=== PATIENT | female | born 1995 | race Native Hawaiian/Other Pacific Islander ===

== ENCOUNTER 2017-07-31 08:00 | Outpatient (CLI) | payer OTHER ==
[2017-07-31 19:08] LABS: HGB - HEMOGLOBIN 11.4 g/dL (12.0-16.0); MEAN CORPUSCULAR HEMOGLOBIN 32.1 pg (27.0-31.0); MEAN CORPUSCULAR VOLUME 94.5 fL (81.0-99.0); MEAN PLATELET VOLUME 8.3 fL (7.9-10.8); RED BLOOD COUNT 3.54 10^6/uL (4.20-5.40); RED CELL DISTRIBUTION WIDTH 14.1 % (12.0-15.0); WHITE BLOOD COUNT 8.2 x10^3/uL (4.8-10.8)
== END 2017-07-31 08:01 ==
LOC: LAB.N 08:00
PROVIDERS: ATTEND Nurse Practitioner Obstetrics & Gynecology
DX: Z36.9 Encounter for antenatal screening, unspecified (principal); Z34.82 Encounter for supervision of other normal pregnancy, second trimester
CPT/HCPCS: 36415; 82950; 85025; 86850; 86900; 86901

== ENCOUNTER 2017-08-06 07:56 | Outpatient (CLI) | payer OTHER | END 2017-08-06 07:57 | disposition home or self-care (01) | LOC: LAB 07:56 | PROVIDERS: ATTEND Nurse Practitioner Obstetrics & Gynecology | DX: R73.02 Impaired glucose tolerance (oral) (principal) | CPT/HCPCS: 36415; 82951 ==

== ENCOUNTER 2017-09-29 15:00 | Outpatient (CLI) | payer OTHER | END 2017-09-29 15:01 | disposition home or self-care (01) | LOC: LAB.R 15:00 | PROVIDERS: ATTEND Nurse Practitioner Obstetrics & Gynecology | DX: Z36.85 Encounter for antenatal screening for Streptococcus B (principal); Z11.3 Encounter for screening for infections with a predominantly sexual mode of transmission; R82.99 Other abnormal findings in urine | CPT/HCPCS: 87081; 87086; 87491; 87591 ==

== ENCOUNTER 2017-10-14 12:05 | Outpatient (CLI) | payer OTHER ==
[2017-10-14 13:13] LABS: URIC ACID 3.5 mg/dL (2.6-7.2)
[2017-10-14 13:17] LABS: CREATININE,URINE 55.3 mg/dL; MICROALBUM/CREATININE RATIO,UR 7.2 ug/mg (<30.0); MICROALBUMIN,URINE 0.4 mg/dL (0-300.0)
[2017-10-14 13:25] LABS: BASOPHILS % (AUTO) 0.3 %; EOSINOPHILS # (AUTO) 0.1 10^3/uL (0.0-0.7); EOSINOPHILS % (AUTO) 0.4 %; HGB - HEMOGLOBIN 12.6 g/dL (12.0-16.0); LYMPHOCYTES # (AUTO) 2.1 10^3/uL (1.5-3.5); LYMPHOCYTES % (AUTO) 16.4 %; MEAN CORPUSCULAR HEMOGLOBIN 31.9 pg (27.0-31.0); MEAN CORPUSCULAR HGB CONC 33.9 g/dL (32.0-36.0); MEAN PLATELET VOLUME 8.5 fL (7.9-10.8); MONOCYTES # (AUTO) 0.8 10^3/uL (0.0-1.0); MONOCYTES % (AUTO) 6.7 %; NEUTROPHILS # (AUTO) 9.5 10^3/uL (1.5-6.6); NEUTROPHILS % (AUTO) 76.2 %; PLT - PLATELET COUNT 214 10^3/uL (130-450); RED BLOOD COUNT 3.93 10^6/uL (4.20-5.40); RED CELL DISTRIBUTION WIDTH 13.4 % (12.0-15.0); WHITE BLOOD COUNT 12.5 x10^3/uL (4.8-10.8)
[2017-10-14 14:13] LABS: CREATININE,URINE 55.3 mg/dL; TOTAL PROTEIN,URINE TIMED < 6 mg/dL
[2017-10-14 15:31] VITALS: BP 118/64
== END 2017-10-14 14:50 | disposition home or self-care (01) ==
LOC: FBP 12:05 → WFO 12:05
PROVIDERS: ATTEND Registered Nurse
DX: O13.3 Gestational [pregnancy-induced] hypertension without significant proteinuria, third trimester (principal); Z3A.37 37 weeks gestation of pregnancy
CPT/HCPCS: 36415; 59025; 82043; 82570; 83615; 84156; 84450; 84550; 85025; 99213

== ENCOUNTER 2017-10-20 12:06 | Inpatient (IN) | payer OTHER ==
[2017-10-20] MEDS ORDERED: SODIUM CHLORIDE FLUSH 0.9% 10 ML SYRINGE IVP PRN (12:26)
[2017-10-20] MEDS: miSOPROStol 100 MCG TABLET BC SCH ×2 (13:27→18:31)
[2017-10-20 13:29] LABS: BASOPHILS % (AUTO) 0.2 %; EOSINOPHILS % (AUTO) 0.4 %; HGB - HEMOGLOBIN 13.1 g/dL (12.0-16.0); LYMPHOCYTES % (AUTO) 15.8 %; MEAN CORPUSCULAR HEMOGLOBIN 31.8 pg (27.0-31.0); MEAN CORPUSCULAR HGB CONC 34.6 g/dL (32.0-36.0); MEAN PLATELET VOLUME 8.4 fL (7.9-10.8); NEUTROPHILS % (AUTO) 78.6 %; PLT - PLATELET COUNT 234 10^3/uL (130-450); RED BLOOD COUNT 4.13 10^6/uL (4.20-5.40); RED CELL DISTRIBUTION WIDTH 13.1 % (12.0-15.0); WHITE BLOOD COUNT 12.6 x10^3/uL (4.8-10.8)
[2017-10-20 13:36] LABS: ABNORMAL LYMPHS % (MANUAL) 0 %
[2017-10-20 13:41] LABS: URIC ACID 3.5 mg/dL (2.6-7.2)
[2017-10-20 13:48] LABS: CREATININE,URINE 23.4 mg/dL; TOTAL PROTEIN,URINE TIMED < 6 mg/dL
[2017-10-20 13:55] LABS: BAND NEUTROPHILS % (MANUAL) 1 %; LYMPHOCYTES # (MANUAL) 1.8 10^3/uL (1.5-3.5); LYMPHOCYTES % (MANUAL) 14 %; MONOCYTES # (MANUAL) 0.5 10^3/uL (0.0-1.0); MYELOCYTES % (MANUAL) 1 %; NEUTROPHILS # (MANUAL) 10.2 10^3/uL (1.5-6.6); NEUTROPHILS % (MANUAL) 80 %
[2017-10-20 13:56] LABS: DIFFERENTIAL COMMENT MANUAL DIFFERENTIAL
[2017-10-20] MEDS ORDERED: SODIUM CHLORIDE FLUSH 0.9% 10 ML SYRINGE IVP SCH (17:00)
--- NOTE | 2017-10-20 17:12 | HISTORY & PHYSICAL EXAMINATION ---
Admit History - Instructions [place]/Slash: -Left hand click circles element as positive or present. -Right hand click slashes element as negative or not present. - Visit Reason Visit Reason: Other (preinduction cervical ripening for GHTN) - : 1 Parity: 0 Premature: 0 Ectopic: 0 : 0 Care: positive: [facility] (beginning @ 23 weeks' gestation), [facility] ( transfer of care @ 23 weeks' gestation) Risk/History: positive: None Complications This : positive: induced HTN, Other ( 1st trimester chlamydia w/ neg TIFFANIE & neg re-screen) Smoking Status: Never smoker - Mother's Labs Mother's Blood Type: positive: O Mother's RH: positive: Negative (Rhogam given 08/11/2017) GBS: positive: Group B Step Negative Rubella Status: positive: Immune Review of Systems - Constitutional Constitutional: denies: Fever, Chills - Cardiovascular Cariovascular: reports: Edema. denies: Irregular heart rate, Palpitations, Chest pain - Respiratory Respiratory: denies: Cough, SOB at rest, SOB with exertion - Gastrointestinal Gastrointestinal: denies: Abdominal pain, Constipation, Diarrhea, Change in bowel habits, Nausea, Vomiting - Genitourinary Genitourinary: reports: Frequency, Urgency. denies: Dysuria - Musculoskeletal Musculoskeletal: reports: Back pain. denies: Muscle pain - Integumentary Integumentary: denies: Rash, Pruritis, Lesions - Neurological Neurological: denies: General weakness, Headache, Dizziness, Numbness - Psychiatric Psychiatric: denies: Depression, Anxiety - All Other Systems All Other Systems: reports: Other (occ non-painful uterine contractions, no LOF , no vaginal bleeding, +FM) Physical - Abdominal Exam Vital Signs: Temp Pulse Resp BP Pulse Ox 36.6 C 104 H 18 135/84 H 10/20/17 12:33 10/20/17 15:10 10/20/17 15:10 10/20/17 15:10 Contraction Frequency (min/apart): 1-3 Contraction Intensity: positive: Mild Uterine Resting Tone: positive: Soft - Monitoring Heart Rate Baseline: 140 Strip Review: positive: Category I - Presentation Presentation: positive: Vertex - Vaginal Exam Membranes: positive: Membranes intact Dilation (in cm): 2 Effacement (%): 50 Station: positive: -1 Cervical Position: positive: Midposition (medium) - Speculum Exam Speculum Exam Performed: positive: No Findings: negative: Gross leak - Other Notes Labor Progress Note/Additional Text: Nica Hickey is a 22 y/o @ 38w1d by early US who presented for care in the first trimester & was seen x2 in [place], [place], then transferred to [facility], where she was seen until 23 weeks' gestation, when she transferred care to [facility]. Her was complicated by early 1st trimester chlamydia w/ negative TIFFANIE & negative re-screening later in , Rh negative status w/ receipt of Rhogam 08/11/2017, elevated 1-hr gtt w/ normal 3-hr gtt. She screened negative for GBS @ 36 weeks' gestation. Her was further complicated recently by persistently elevated BPs to max high 140s/high 90s. No proteinuria or s/sx PET @ this time. Nica was counseled regarding gestational HTN & implications for herself & her fetus as well as current recommendations for management. Nica elected induction of labor w/ prostaglandin preinduction cervical ripening. She was counseled @ length by Madeleine Storey CNM, and informed consent was obtained. 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; denies ETOH/tobacco/ drugs; denies hx depression/anxiety PE: GEN: AAOx3, NAD WA gravid female HEENT: grossly normocephalic, atraumatic RESP: lungs b/l CTA t/o CARDIAC: RRR nls1s2, gr 1/6 systolic ejection murmur GI: abd s, nt, gravid, lie longitudinal, presentation cephalic, efw 6.5-7# : no lesion, no exudate, sve by madeleine storey cnm: /-1, medium, midposition MS: FROM t/o, no deformity, no erythema, trace b/l pedal edema, no bea's SKIN: warm, well-perfused, c/d/i, no lesion, + tattoos NEURO: no focal deficit PSYCH: pleasantly conversant w/ normal mood & affect Plan for Labor - Plan For Labor I expect patient to be DC'd or transferred within 96 hours.: Yes Plan for Labor: 1. Admit to observation for preinduction cervical ripening; admit to inpatient w / ROM or active labor 2. misoprostol 50mcg buccally q 4 hours 3. reassess cervical status w/ clinical change 4. Pitocin infusion & AROM w/ favorable cervical stat 5. PET labs now & repeat in am, careful BP monitoring w/ antihypertensive therapy as clinically indicated 6. Reviewed plan of care w/ pt, partner & RN, all in agreement, without concerns
[2017-10-20] MEDS: LACTATED RINGERS 1,000 ML IV SCH (20:53)
[2017-10-21] MEDS: LACTATED RINGERS 1,000 ML IV SCH ×2 (01:52→04:51)
[2017-10-21] MEDS ORDERED: fent/BUPIV 2 MCG/0.125% 250 ML EP ONE (02:23)
[2017-10-21] MEDS ORDERED: NALBUPHINE 10 MG/ML AMP IVP PRN (02:48)
[2017-10-21] MEDS ORDERED: fent/BUPIV 2 MCG/0.125% 250 ML EP PRN (02:48)
[2017-10-21] MEDS ORDERED: ePHEDrine 50 MG/ML VIAL IVP PRN (02:48)
[2017-10-21] MEDS ORDERED: ONDANSETRON 4 MG/2 ML VIAL IVP PRN (02:48)
[2017-10-21] MEDS ORDERED: NALOXONE 0.4 MG/ML VIAL IVP PRN (02:48)
[2017-10-21] MEDS ORDERED: BUPIVACAINE 0.25% PF 30 ML VIAL SUBQ ONE (03:00)
[2017-10-21] MEDS ORDERED: SODIUM CHLORIDE 0.9% 10 ML VIAL IV ONE (03:00)
[2017-10-21] MEDS ORDERED: fentaNYL 100 MCG/2 ML VIAL ONE (03:01)
--- NOTE | 2017-10-21 03:53 | PROVIDER PROGRESS NOTE ---
Labor Progress Note - Uterine Monitoring Uterine Monitoring Mode: positive: External toco Contraction Frequency (min/apart): 2-5 Contraction Intensity: positive: Strong Uterine Resting Tone: positive: Soft Other Uterine Monitoring: IUPC placed without incident; baseline 15mmHg, peak 75mmHg - Monitoring Monitor Mode: positive: Spiral electrode Heart Rate Baseline: 150 Heart Rate Variability: positive: Moderate (6-25 bmp) Accelerations: positive: Present, 15x15 Decelerations: positive: Early, Late (occasional, non-repetitive) Strip Review: positive: Category II - Vaginal Exam Dilation (in cm): 8 Effacement (%): 80 Station: 1 (descends to +2 w/ uterine contraction) - Labor Progress Note Labor Progress Note/Additional Text: S: Nica is comfortable w/ her epidural in place. Ashley is present @ the bedside & is supportive. She feels shaky & has a lot of vaginal pressure w/ each contraction O: VSS: BP 145/91 HR 110, T 97.3, RR 18 EFM: BL 150bpm, + accels, early decels & intermittent late decels to david in 130s w/ spontaneous return to baseline <60 seconds; FSE placed easily to ensure accuracy of FHT assessment TOCO: UCs q1-2 minutes; IUPC placed w/ ease to ensure accuracy of FHT assessment & uterine activity assessment, BL 15mmHg, peak 75mmHg, contractions q1-4 minutes; MVU presently >200 SVE: 8/80/+1; head descends readily to +2 w/ uterine contraction, position LOUIS A: 22 y/o @ 38w1d by early US, active labor s/p 2 buccal doses of 50mcg misoprostol SROM for CAF @2300, for a total ruptured duration of 5 hours, afebrile Progressive cervical change GBS negative FHTs cat II, overall reassuring w/o evidence of hypoxemia Adequate pain control w/ epidural anesthesia P: 1. Reviewed optimal positioning to encourage descent, peanut ball placed & pt in exaggerated R lateral position 2. Encouraged maternal rest to precede second stage 3. Reviewed anticipatory guidance for 2nd stage labor 4. Initiate Pitocin infusion if MVU <200 consistently; titrate per protocol to maintain adequate labor per IUPC 5. Reassess cervical status x4 hours, earlier PRN; plan initial passive descent as fetus tolerates 6. Anticipate 7. Reviewed plan of care w/ pt, partner & RN @ bedside; all in agreement, without concerns. Dr. Chester Do, back-up BREAKER UNIT ASSEMBLER apprised of pt clinical scenario.
[2017-10-21] MEDS ORDERED: OXYTOCIN/SODIUM CHLORIDE 500 ML IV SCH (04:00)
[2017-10-21] MEDS ORDERED: LIDOCAINE 1% 50 ML MDV ONE (07:40)
[2017-10-21] MEDS: OXYTOCIN/SODIUM CHLORIDE 250 ML IV ONE ×2 (07:47→08:23)
[2017-10-21] MEDS ORDERED: HYDROCORTISONE 1% CREAM 28 GM TUBE PR PRN (08:07)
[2017-10-21] MEDS ORDERED: WITCH HAZEL/GLYCERIN 1 EACH MED..PAD TOP PRN (08:07)
[2017-10-21] MEDS ORDERED: HYDROCORTISONE/PRAMOXINE 10 GM PR PRN (08:07)
--- NOTE | 2017-10-21 08:07 | DELIVERY NOTE ---
Delivery Note - Labor Labor: positive: Other (induced w/ misoprostol 50mcg buccally x2 doses) - Infant Delivery Method Delivery Method: positive: Spontaneous vaginal delivery - Cervical Ripening Method Cervical Ripening Method: positive: Misoprostil (x2 buccal doses of 50mcg) - Presentation Presentation: positive: Vertex, Compound (right hand), LOUIS - left occiput anterior - Nuchal Cord Nuchal Cord: positive: None - Anesthetic Anesthetic Type: - Amniotic Fluid Description Amniotic Fluid Description: positive: Clear - Episiotomy Type Episiotomy Type: positive: None - Laceration Laceration: positive: None - Delivery Outcome Delivery Outcome: positive: Livebirth - [place] : positive: Placed in direct skin contact with mother, Warmed, [place] used sex: positive: Female - Cord Cord: positive: 3 vessels - Placenta Placenta: positive: Intact, Spontaneous - Estimated Blood Loss Estimated Blood Loss (in cc): 200 - Delivery Comments (Free Text/Narrative) Delivery Comments (Free Text/Narrative): Nica [place] is a 22y/o [id number] who presented for cervical ripening secondary to gestational HTN w/ increasing BPs @ 38 weeks' gestation. She did not have s/sx PET & did not have severe-range BPs requiring antihypertensive therapy. She received 2 doses of buccal misoprostol & entered active labor. She experienced SROM for CAF @ 00:00 & requested & received epidural anesthesia for her discomfort. FHTs were monitored electronically t/o & were cat I-II; FSE & IUPC were placed to ensure accuracy of assessment & direct interventions. She progressed steadily to complete dilatation @ 0510, for a total first stage duration of 5 hours, 10 minutes. Nica labored down x1.5 hours then began actively pushing w/ greater effort exerted beginning @ 0710 than she was exerting previously. With direction, Nica pushed effectively to achieve viable female in LOUIS position w/ compound R hand @ 0747, for a total 2nd stage duration of 2 hours, 37 minutes. vigorous w/ spontaneous, lusty cry; placed to maternal abd for drying/stim. Delayed cord clamping until cessation of pulsation, then cord clamped x2 by CNM, cut by FOB. 3VC noted, cord blood obtained. 3rd stage actively managed w/ Pitocin in IV fluids. Placenta del spontaneously, Gunjan, @ 0752, for a total 3rd stage duration of 5 minutes. Fundus firm @ U. Vagina & perineum inspected & found to be intact. EBL 200mL. Infant apgars 9/9. Actively attempting to suckle w/in 20 minutes of delivery. Mother & stable; weight pending.
[2017-10-21 08:31] LABS: BASOPHILS % (AUTO) 0.3 %; HGB - HEMOGLOBIN 12.3 g/dL (12.0-16.0); LYMPHOCYTES # (AUTO) 1.4 10^3/uL (1.5-3.5); LYMPHOCYTES % (AUTO) 8.3 %; MEAN CORPUSCULAR HEMOGLOBIN 31.6 pg (27.0-31.0); MEAN CORPUSCULAR HGB CONC 34.1 g/dL (32.0-36.0); MEAN CORPUSCULAR VOLUME 92.7 fL (81.0-99.0); MEAN PLATELET VOLUME 8.6 fL (7.9-10.8); MONOCYTES % (AUTO) 5.7 %; NEUTROPHILS # (AUTO) 14.7 10^3/uL (1.5-6.6); NEUTROPHILS % (AUTO) 85.7 %; PLT - PLATELET COUNT 212 10^3/uL (130-450); RED BLOOD COUNT 3.89 10^6/uL (4.20-5.40); RED CELL DISTRIBUTION WIDTH 13.3 % (12.0-15.0); WHITE BLOOD COUNT 17.2 x10^3/uL (4.8-10.8)
[2017-10-21 08:42] LABS: CREATININE 0.5 mg/dL (0.4-1.0); URIC ACID 4.8 mg/dL (2.6-7.2)
[2017-10-21] MEDS: IBUPROFEN 800 MG TABLET PO SCH ×3 (09:07→21:16)
[2017-10-21] MEDS: ACETAMINOPHEN 500 MG TABLET PO SCH ×2 (09:07→16:56)
--- NOTE | 2017-10-21 11:45 | ANESTHESIA POST OP EVALUATION ---
Anesthesia Post Eval - Post Anesthesia Eval CV Function Including HR & BP: positive: Stable Pain Control: positive: Adequate Nausea & Vomiting: positive: Negative Mental Status: positive: Appropriate Anesthesia Complications: positive: None (Call to 2103 for difficulty removing epidural catheter. Pt sitting with back bent in epidural placement position. Catheter removed with tip intact with moderate resistance. Pt states she was comfortable with epidural. No apparent anesthesia complications. Explained that back may be sore at placement site in coming days.)
[2017-10-22] MEDS: ACETAMINOPHEN 500 MG TABLET PO SCH ×2 (00:56→09:00)
[2017-10-22] MEDS: IBUPROFEN 800 MG TABLET PO SCH ×3 (04:18→12:21)
--- NOTE | 2017-10-22 09:07 | Discharge Plan ---
Discharge Plan Disposition: 01 Home, Self Care Condition: Good Diet: Regular Activity Restrictions: pelvic rest x6 weeks Shower Restrictions: No Driving Restrictions: No Weight Bearing: Full Weight Instruction Topics: Vaginal After, Breastfeed How To, Jaundice Signs Inf , Exercises Kegel No Smoking: If you smoke, Please STOP! Call for help. Follow-up with: Walker Fam CNM, PURA [Provider Admit Priv/Credential] -
--- NOTE | 2017-10-22 09:10 | DISCHARGE SUMMARY ---
"Discharge Summary Admit Date: 10/20/17 Discharge Date: 10/22/17 Discharging Provider: ROMA Code Status: Attempt Resuscitation Condition at Discharge: Good Discharge Disposition: 01 Home, Self Care Discharge Facility Name: [facility] - DIAGNOSES Admission Diagnoses: GESTATIONAL HYPERTENSION Discharge Diagnoses with Status of Each Condition: - HPI History of Present Illness: ALTHEA HOLCOMB IS A 22 Y/O [id number] WHO PRESENTED FOR PREINDUCTION CERVICAL RIPENING FOR NEW ONSET HTN W/O SEVERE RANGE BPS @ 38 WEEKS' GESTATION BY FIRST TRIMESTER US. SHE RECEIVED 2 BUCCAL DOSES OF PO MISOPROSTOL & PROGRESSED TO ACTIVE LABOR FROM THERE. SHE EXPERIENCED SROM FOR CAF & RECEIVED EPIDURAL ANESTHESIA FOR PAIN MANAGEMENT. SHE PROGRESSED STEADILY TO COMPLETE DILATATION & DELIVERED A VIABLE FEMALE VAGINALLY OVER AN INTACT PERINEUM W/O COMPLICATION. - CONSULTS | PROCEDURES Consultations: ANESTHESIA Procedures: , ALTHEA IS AMBULATING & VOIDING W/O DIFFICULTY. SHE IS PASSING FLATUS & TOLERATING PO INTAKE. SHE REPORTS NO DISCOMFORT & MINIMAL LOCHIA RUBRA. SHE IS EXCLUSIVELY W/O DIFFICULTY & REPORTS COPIOUS COLOSTRUM PRODUCTION. SHE IS PLANNING 84 DAYS OF LEAVE FROM WORK & HER WILL HAVE 10 DAYS OFF TO ASSIST HER AT HOME. HER FAMILY & HIS FAMILY WILL BE VISITING IN [place]AG[place]ED [place] TO ASSIST HER. SHE IS NOT PLANNING ANOTHER @ THIS TIME & INTENDS PP NEXPLANON INSERTION FOR CONTRACEPTION. SHE IS ABLE TO FULLY ARTICULATE PP WARNING S/SX, INCLUDING PP DEPRESSION S/SX, AND PP AFTERCARE INSTRUCTIONS. SHE IS READY TO LEAVE THE HOSPITAL. - HOSPITAL COURSE Hospital Course: , ALTHEA IS AMBULATING & VOIDING W/O DIFFICULTY. SHE IS PASSING FLATUS & TOLERATING PO INTAKE. SHE REPORTS NO DISCOMFORT & MINIMAL LOCHIA RUBRA. SHE IS EXCLUSIVELY W/O DIFFICULTY & REPORTS COPIOUS COLOSTRUM PRODUCTION. SHE IS PLANNING 84 DAYS OF LEAVE FROM WORK & HER WILL HAVE 10 DAYS OFF TO ASSIST HER AT HOME. HER FAMILY & HIS FAMILY WILL BE VISITING IN STAGGERED [place] TO ASSIST HER. SHE IS NOT PLANNING ANOTHER @ THIS TIME & INTENDS PP NEXPLANON INSERTION FOR CONTRACEPTION. SHE IS ABLE TO FULLY ARTICULATE PP WARNING S/SX, INCLUDING PP DEPRESSION S/SX, AND PP AFTERCARE INSTRUCTIONS. SHE IS READY TO LEAVE THE HOSPITAL. - ALLERGIES Allergies/Adverse Reactions: Allergies Allergy/AdvReac Type Severity Reaction Status Date / Time No Known Drug Allergies Allergy Verified 10/21/17 02:48 - MEDICATIONS Home Medications: Ambulatory Orders Medication Instructions Recorded Confirmed Ibuprofen [Motrin] 800 mg PO Q6H tablet 10/22/17 - PHYSICAL EXAM AT DISCHARGE General Appearance: positive: No acute distress, Alert Respiratory: positive: Chest non-tender, No respiratory distress, Breath sounds nml Cardiovascular: positive: Regular rate & rhythm, No murmur Abdomen: positive: Non-tender, No distention, Other (ff U-1). negative: Tenderness Skin: positive: Color nml, No rash, Warm, Dry Extremities: positive: Non-tender, Full ROM, Nml appearance, No pedal edema. negative: Calf tenderness, Araceli's sign/cords Neurologic/Psychiatric: positive: Oriented x3, CN's nml (2-12), Motor nml, Sensation nml, Mood/affect nml Physical Exam Other/Comments: BREASTS B/L S, NT; NIPPLES B/L INTACT & EVERTED; COLOSTRUM READILY EXPRESSIBLE. PERINEUM INTACT W/O ERYTHEMA/EDEMA/ECCHYMOSIS, MINIMAL LOCHIA RUBRA - LABS Result Diagrams: 10/21/17 08:23 10/21/17 08:23 - FOLLOW UP Follow Up: X1 WEEK FOR W/ LIA BRANDON CNM; X3 WEEKS FOR PP VISIT; X8 WEEKS FOR ANNUAL EXAM - TIME SPENT Time Spent in Discharge (Minutes): 20"
[2017-10-22] MEDS ORDERED: DOCUSATE SODIUM 100 MG CAPSULE PO SCH (10:00)
[2017-10-22 12:25] VITALS: BP 126/78
[2017-10-22] MEDS ORDERED: RHO(D) IMMUNE GLOBULIN 300 MCG SYRINGE IM SCH (14:08)
--- NOTE | 2017-10-22 16:19 | Labor Flowsheet ---
Labor Flowsheet Datetime Report Generated by CPN: 10/22/2017 16:19 Datetime: 10/22/2017 12:17 VITAL SIGNS NBP Sys/Callie/Mean (mmHg): 126 : 78 : 88 Pulse: 77 LaborFlag: Labor Datetime: 10/21/2017 23:59 SpO2 (%): 99 Datetime: 10/21/2017 07:45 Stage of : Labor UTERINE ACTIVITY Monitor Mode: Internal Frequency (min): 3 Duration (sec): 60-80 Pattern: Normal: <= 5 Contractions in 10 Minutes Resting Tone IUP (mmHg): 30 Intensity IUP (mmHg): 100 Contraction Comments: ctx ASSESSMENT A Monitor Mode: Internal Scalp Electrode FHR Baseline Rate : indeterminate Variability: Moderate 6-25 bpm Actions for Decelerations: Provider Notified Category: Category II Datetime: 10/21/2017 07:30 Temperature (C): 36.7 Accelerations: None Decelerations: Variable Datetime: 10/21/2017 07:20 COMMUNICATION Communication: Provider at Bedside Communication Comments: Mil[place]a Datetime: 10/21/2017 07:15 Resting Tone (Palpate): Relaxed Datetime: 10/21/2017 07:02 Quality: Strong Datetime: 10/21/2017 06:59 Respirations: 18 Datetime: 10/21/2017 06:50 Temperature Route: Oral FHR Baseline Changes: No Baseline Change Datetime: 10/20/2017 19:00 Oxygen Method: Room Air Datetime: 10/20/2017 18:31 MEDICATIONS Cervical Ripening Agents: Cytotec @ 50 Datetime: 10/20/2017 13:01 MATERNAL ASSESSMENT Level of Consciousness: Fully Conscious DTR's/Clonus: DTRs 2+; No Clonus Headache: Frontal Breath Sounds, Left: Clear and Equal Breath Sounds, Right: Clear and Equal Nausea/Vomiting: Denies RUQ Epigastric Pain: Denies Maternal Comments: Had upper abdominal pain this morning, resolved now PATIENT CARE IV/Blood Work: IV Started TEACHING Instructional Method: Verbal Plan of Care: Plan of Care Discussed; Induction Unit Routine: Webster to Room; Call Garcia; Bed Labor/Induction: Cervical Ripening
== END 2017-10-22 15:15 | disposition home or self-care (01) | DRG 774 ==
LOC: WFO 12:06 → FBP 12:08 → WFO 12:25 → FBP 12:26 → OBSVTOIN 23:03
PROVIDERS: ADMIT Nurse Practitioner Obstetrics & Gynecology; ATTEND Registered Nurse
PROC: 10E0XZZ Delivery of Products of Conception, External Approach (ICD-10-PCS; principal; 2017-10-21)
DX: O13.4 Gestational [pregnancy-induced] hypertension without significant proteinuria, complicating childbirth (principal); O98.32 Other infections with a predominantly sexual mode of transmission complicating childbirth; O26.893 Other specified pregnancy related conditions, third trimester; O32.6XX0 Maternal care for compound presentation, not applicable or unspecified; Z3A.38 38 weeks gestation of pregnancy; Z37.0 Single live birth; Z67.41 Type O blood, Rh negative
CPT/HCPCS: 36415; 82565; 82570; 83033; 83615; 84156; 84450; 84550; 85025; 86900; 86901; 96360; 96361

== ENCOUNTER 2018-06-15 14:14 | Emergency (ER) | payer OTHER ==
[2018-06-15 14:43] LABS: BILIRUBIN,URINE NEGATIVE (NEGATIVE); GLUCOSE, URINE (UA) NEGATIVE (NEGATIVE); KETONES,URINE (UA) NEGATIVE (NEGATIVE); LEUKOCYTE ESTERASE, URINE NEGATIVE (NEGATIVE); NITRITE,URINE NEGATIVE (NEGATIVE); OCCULT BLOOD,URINE MODERATE (NEGATIVE); PH,URINE 6.5 PH (5.0-7.5); PROTEIN,URINE NEGATIVE (NEGATIVE); UROBILINOGEN,URINE 0.2 (NORMAL) E.U./dL (NORMAL)
[2018-06-15 14:46] LABS: CLARITY,URINE CLEAR (CLEAR); HCG UR QUAL NEGATIVE
--- NOTE | 2018-06-15 15:01 | ED Physician Documentation ---
PD HPI FEMALE - Stated complaint Stated Complaint: FEMALE /ABD PX/NAUSA/DIZZY - Chief complaint Chief Complaint: Abd Pain - History obtained from History obtained from: Patient - History of Present Illness Timing - onset: How many days ago (has had Nexplanon for several months and has had ongoing frequent spotting and cramps with it. No full menses per se. Has had few days of increased cramping pains now. No vaginal discharge per se with the spotting. Current pains are worse than prior.) Timing - duration: Days Timing - details: Gradual onset, Still present, Waxing and waning Associated symptoms: Pelvic pain, Vaginal bleeding. No: Fever, Vaginal discharge, Genital sore/lesion, Dysuria, Urinary frequency Contributing factors: control. No: , Exposed to STD Similar symptoms before: No diagnosis (has had significant cramping at times since Nexplanon past several months) Review of Systems Constitutional: denies: Fever, Chills, Myalgias Nose: denies: Rhinorrhea / runny nose, Congestion Throat: denies: Sore throat Respiratory: denies: Cough GI: reports: Abdominal Pain, Nausea. denies: Vomiting, Diarrhea : reports: Irregular menses (just spotting without full menses). denies: Dysuria, Frequency, Discharge Skin: denies: Rash, Lesions PD PAST MEDICAL HISTORY - Past Medical History Cardiovascular: None Respiratory: None Neuro: None Endocrine/Autoimmune: None - Present Medications Home Medications: Ambulatory Orders Medication Instructions Recorded Confirmed Ibuprofen [Motrin] 800 mg PO Q6H tablet 10/22/17 06/15/18 - Allergies Allergies/Adverse Reactions: Allergies Allergy/AdvReac Type Severity Reaction Status Date / Time No Known Drug Allergies Allergy Verified 06/15/18 15:04 - Social History Smoking Status: Never smoker PD ED PE NORMAL - Vitals Vital signs reviewed: Yes - General General: Alert and oriented X 3, Well developed/nourished, Other (appears uncomfortable but declines meds, says she does not like to take medication. Wanting to ensure no significant problems. ) - HEENT HEENT: Pharynx benign - Neck Neck: Supple, no meningeal sign, No adenopathy - Cardiac Cardiac: RRR, No murmur - Respiratory Respiratory: Clear bilaterally - Abdomen Abdomen: Normal bowel sounds, Soft, Non distended, No organomegaly, Other (suprapubic and LLQ tenderness without guarding nor percussion tenderness. ) - Female Female : Deferred - Derm Derm: Normal color, Warm and dry - Extremities Extremities: No tenderness to palpate, Normal ROM s pain - Neuro Neuro: Alert and oriented X 3, No motor deficit, Normal speech Results - Vitals Vitals: Vital Signs - 24 hr 06/15/18 06/15/18 06/15/18 14:20 16:01 17:20 Temperature 36.1 C L 36.5 C Heart Rate 86 96 86 Respiratory 16 18 16 Rate Blood Pressure 139/83 H 121/77 117/88 H O2 Saturation 98 98 98 Oxygen O2 Source Room air - Labs Labs: Laboratory Tests 06/15/18 06/15/18 14:30 14:30 Urine Color YELLOW Urine Clarity CLEAR Urine pH 6.5 Ur Specific [place] 1.020 1.020 Urine Protein NEGATIVE Urine Glucose (UA) NEGATIVE Urine Ketones NEGATIVE Urine Occult Blood MODERATE H Urine Nitrite NEGATIVE Urine Bilirubin NEGATIVE Urine Urobilinogen 0.2 (NORMAL) Ur Leukocyte Esterase NEGATIVE Urine RBC 6-10 H Urine WBC 0-3 Ur Squamous Epith Cells FEW Squamous Urine Bacteria Rare Ur Microscopic Review INDICATED Urine Culture Comments NOT INDICATED Urine HCG, Qual NEGATIVE - Rads (name of study) pelvic U/S Radiology: Prelim report reviewed (small cyst/dominant follicle left ovary without signs of free fluid. Good blood flow seem in ovaries. ) PD MEDICAL DECISION MAKING - ED course Complexity details: reviewed results, considered differential, d/w patient Departure - Departure Disposition: 01 Home, Self Care Clinical Impression: Pelvic pain Condition: Stable Record reviewed to determine appropriate education?: Yes Instructions: ED Cramping Menstrual Follow-Up: AMAIRANI MORENO MD [Primary Care Provider] - Comments: Drink lots of fluids. You have a small simple cyst on your ultrasound. Is not that big so I do not know that that is necessarily hurting but might be incidental. There is no signs of internal bleeding. Otherwise the ultrasound looks normal. Drink lots of fluids and use ibuprofen or naproxen if needed for pains or cramps. Follow-up if repetitive episodes of this. If you have vaginal discharge or symptoms of infection then also follow-up or return. Discharge Date/Time: 06/15/18 17:26
[2018-06-15 15:14] LABS: BACTERIA,URINE Rare /HPF (None Seen); SQUAMOUS EPITHELIAL CELL,UR FEW Squamous (<= Few)
[2018-06-15 17:20] VITALS: BP 117/88
--- NOTE | 2018-06-15 17:38 | Ultrasound Report ---
Reason: pelvic pain, mostly to left, for 2-3 days Procedure Date: 06/15/2018 Accession Number: [id number] / [id number] Procedure: US - Pelvic w/Transvag+Doppler Ltd CPT Code: FULL RESULT: EXAM: PELVIC WITH TRANSVAGINAL PLUS DOPPLER EXAM DATE: 06/15/2018 04:45 PM. CLINICAL HISTORY: Pelvic pain, mostly to left, for 2-3 days. COMPARISON: None. TECHNIQUE: Realtime transabdominal pelvic scan performed to identify the uterus and adnexa and as an overview of other pelvic structures, followed by transvaginal scan to provide greater detail of the uterus and adnexa, with static image documentation. FINDINGS: Uterus: 6.7 x 3 x 5.3 cm, volume 56 cc. Anteverted position. Normal overall size and echotexture. Masses: None. Endometrium: 2 mm. Normal. Cervix: Unremarkable. Right Ovary: 3.5 x 2.3 x 3.1 cm, volume 31.1 cc. Normal echotexture and blood flow. Arterial and venous blood flow are present. Peak systolic velocity 21.63 cm/s, resistive index 0.5. Left Ovary: 2.9 x 2.3 x 2 cm, volume 6.9 cc. Normal echotexture and blood flow. Dominant follicle in the left ovary measures 1.6 x 1 x 1.2 cm. Arterial and venous blood flow are present. Peak systolic velocity 6.52 cm/s, resistive index 0.41. Free Fluid: No significant free fluid seen. IMPRESSION: Normal pelvic ultrasound. Arterial and venous blood flow are present in both ovaries. No evidence for ovarian torsion. RADIA
== END 2018-06-15 17:26 | disposition home or self-care (01) ==
LOC: ED 14:14
DX: R10.2 Pelvic and perineal pain (principal); N83.02 Follicular cyst of left ovary
CPT/HCPCS: 76830; 76856; 81001; 81003; 81025; 87086; 93976; 99283

== ENCOUNTER 2019-07-16 08:00 | Emergency (ER) | payer OTHER ==
[2019-07-16 09:11] LABS: BILIRUBIN,URINE NEGATIVE (NEGATIVE); GLUCOSE, URINE (UA) NEGATIVE (NEGATIVE); KETONES,URINE (UA) TRACE mg/dL (NEGATIVE); LEUKOCYTE ESTERASE, URINE NEGATIVE (NEGATIVE); NITRITE,URINE NEGATIVE (NEGATIVE); OCCULT BLOOD,URINE NEGATIVE (NEGATIVE); PH,URINE 6.5 PH (5.0-7.5); PROTEIN,URINE NEGATIVE (NEGATIVE); UROBILINOGEN,URINE 0.2 (NORMAL) E.U./dL (NORMAL)
[2019-07-16 09:15] LABS: CLARITY,URINE CLEAR (CLEAR); HCG UR QUAL POSITIVE
--- NOTE | 2019-07-16 09:18 | ED Physician Documentation ---
PD HPI FEMALE - Stated complaint Stated Complaint: FEMALE - Chief complaint Chief Complaint: General - History obtained from History obtained from: Patient - History of Present Illness Timing - onset: How many days ago (she is 4-5 days late for her period, which is usually very regular, so took home test that was positive. She is concerned since she has an IUD in place.) Timing - duration: Days (discovered today) Associated symptoms: No: Fever, Pelvic pain, Vaginal bleeding, Vaginal discharge, Dysuria, Urinary frequency Contributing factors: (just discovered with test at home.), IUD (has had it in for 5-6 months) OB-COLLAR POINTER History: G (2), P (1) Recently seen: Not recently seen Review of Systems Constitutional: denies: Fever, Chills Nose: denies: Rhinorrhea / runny nose, Congestion Throat: denies: Sore throat Respiratory: denies: Cough GI: reports: Nausea. denies: Abdominal Pain, Vomiting, Diarrhea : reports: LMP (5 weeks ago), Vaginal bleeding, Missed period. denies: Dysuria, Frequency Neurologic: denies: Generalized weakness, Near syncope PD PAST MEDICAL HISTORY - Past Medical History Cardiovascular: None Respiratory: None Neuro: None Endocrine/Autoimmune: None GI: None COLLAR POINTER: None : None HEENT: None Psych: None Musculoskeletal: None Derm: None - Past Surgical History Past Surgical History: No - Present Medications Home Medications: Ambulatory Orders Medication Instructions Recorded Confirmed Ibuprofen [Motrin] 800 mg PO Q6H tablet 10/22/17 06/15/18 - Allergies Allergies/Adverse Reactions: Allergies Allergy/AdvReac Type Severity Reaction Status Date / Time No Known Drug Allergies Allergy Verified 06/15/18 15:04 - Social History Does the pt smoke?: No Smoking Status: Never smoker Does the pt drink ETOH?: No Does the pt have substance abuse?: No PD ED PE NORMAL - Vitals Vital signs reviewed: Yes - General General: Alert and oriented X 3, No acute distress, Well developed/nourished - Cardiac Cardiac: RRR, No murmur - Respiratory Respiratory: Clear bilaterally - Abdomen Abdomen: Normal bowel sounds, Soft, Non tender, Non distended - Female Female : Deferred - Back Back: No CVA TTP - Derm Derm: Normal color Results - Vitals Vitals: Vital Signs - 24 hr 07/16/19 07/16/19 08:30 12:30 Temperature 36.9 C 36.5 C Heart Rate 79 78 Respiratory 18 16 Rate Blood Pressure 122/62 117/68 O2 Saturation 100 100 Oxygen O2 Source Room air - Labs Labs: Laboratory Tests 07/16/19 07/16/19 07/16/19 08:37 08:37 09:47 WBC 6.4 RBC 4.80 Hgb 11.4 L Hct 37.3 MCV 77.7 L MCH 23.8 L MCHC 30.6 L RDW 16.4 H Plt Count 253 MPV 9.3 Neut # (Auto) 3.4 Lymph # (Auto) 2.4 [place] # (Auto) 0.5 Eos # (Auto) 0.0 Baso # (Auto) 0.0 Absolute Nucleated RBC 0.00 Nucleated RBC % 0.0 HCG, Quant Urine Color YELLOW Urine Clarity CLEAR Urine pH 6.5 Ur Specific [place] 1.020 1.020 Urine Protein NEGATIVE Urine Glucose (UA) NEGATIVE Urine Ketones TRACE Urine Occult Blood NEGATIVE Urine Nitrite NEGATIVE Urine Bilirubin NEGATIVE Urine Urobilinogen 0.2 (NORMAL) Ur Leukocyte Esterase NEGATIVE Ur Microscopic Review NOT INDICATED Urine Culture Comments NOT INDICATED Urine HCG, Qual POSITIVE Blood Type 07/16/19 07/16/19 09:47 09:47 WBC RBC Hgb Hct MCV MCH MCHC RDW Plt Count MPV Neut # (Auto) Lymph # (Auto) [place] # (Auto) Eos # (Auto) Baso # (Auto) Absolute Nucleated RBC Nucleated RBC % HCG, Quant 145.96 Urine Color Urine Clarity Urine pH Ur Specific [place] Urine Protein Urine Glucose (UA) Urine Ketones Urine Occult Blood Urine Nitrite Urine Bilirubin Urine Urobilinogen Ur Leukocyte Esterase Ur Microscopic Review Urine Culture Comments Urine HCG, Qual Blood Type O NEGATIVE - Rads (name of study) OB U/S Radiology: Prelim report reviewed (IUD in MARCI (upper cervix). No IUP seen. Corpus luteum cyst on left. No other adnexal abnormality. ), See rad report PD MEDICAL DECISION MAKING - ED course Complexity details: reviewed results, re-evaluated patient, considered differential (concern for IUD with early , high risk for ectopic. ), d/w patient, d/w organizational effectiveness consultant (Dr. Villeda, lead generation specialist COLLAR POINTER) Departure - Departure Disposition: 01 Home, Self Care Clinical Impression: Early stage of , IUD (intrauterine device) in place Condition: Stable Record reviewed to determine appropriate education?: Yes Instructions: ED Abdominal Pain Rule Out Ectopic Follow-Up: JAMES VILLEDA MD, PHD [Physician No Access] - AMAIRANI MORENO MD [Primary Care Provider] - Comments: Stay well-hydrated. Follow-up with your primary care or [facility] for repeat blood tests (quantitative hCG) every 3 days or so until the level is high enough to repeat an ultrasound and look for the viability of the and position. Return if abdominal pain, fevers, vomiting, significant vaginal bleeding, other concerns. Tylenol or ibuprofen are okay to take for pains if needed Forms: Activity restrictions Discharge Date/Time: 07/16/19 12:32
[2019-07-16 09:56] LABS: BASOPHILS % (AUTO) 0.5 %; EOSINOPHILS % (AUTO) 0.2 %; HGB - HEMOGLOBIN 11.4 g/dL (12.0-16.0); LYMPHOCYTES # (AUTO) 2.4 10^3/uL (1.5-3.5); MEAN CORPUSCULAR HEMOGLOBIN 23.8 pg (27.0-31.0); MEAN CORPUSCULAR HGB CONC 30.6 g/dL (32.0-36.0); MEAN CORPUSCULAR VOLUME 77.7 fL (81.0-99.0); MEAN PLATELET VOLUME 9.3 fL (7.9-10.8); MONOCYTES # (AUTO) 0.5 10^3/uL (0.0-1.0); MONOCYTES % (AUTO) 8.2 %; NEUTROPHILS # (AUTO) 3.4 10^3/uL (1.5-6.6); NEUTROPHILS % (AUTO) 53.9 %; PLT - PLATELET COUNT 253 10^3/uL (130-450); RED CELL DISTRIBUTION WIDTH 16.4 % (12.0-15.0); WHITE BLOOD COUNT 6.4 x10^3/uL (4.8-10.8)
--- NOTE | 2019-07-16 11:03 | Ultrasound Report ---
Reason: early ; IUD; lower abd pain Procedure Date: 07/16/2019 Accession Number: [id number] / [id number] Procedure: US - OB First Trimester CPT Code: Final Report FULL RESULT: EXAM: FIRST TRIMESTER OBSTETRIC ULTRASOUND (Less than 11 weeks) EXAM DATE: 07/16/2019 09:59 AM. CLINICAL HISTORY: Early ; IUD; lower abd pain. LMP: 06/13/2019. COMPARISONS: None. TECHNIQUE: Transabdominal and transvaginal ultrasound examination with static image documentation. CLINICAL DATES: EGA 4 weeks 5 days with MEL 03/19/2020 based on LMP/. ASSESSMENT: Gestational Sac: Not identified Embryo: Not identified. Yolk sac: Not identified MATERNAL STRUCTURES: Uterus: Anteverted/Retroverted. Endometrium thickened 14 mm. . Cervix: IUD in cervix, lower uterine segment. Right Ovary/Adnexa: The ovary measures 3.5 x 1.6 x 2 cm, volume 5.8 cc. Unremarkable. Left Ovary/Adnexa: The ovary measures 3.9 x 2.5 x 2.9 cm, volume 14.7 cc. Collapsing corpus luteal cyst 1.8 x 1.6 x 1.4 cm Free Fluid: None. Other: None. IMPRESSION: 1. No intrauterine identified. 2. Left ovary corpus luteal cyst. Ovaries otherwise unremarkable RADIA
[2019-07-16 12:32] VITALS: BP 117/68
--- NOTE | 2019-07-18 13:53 | CONSULTATION NOTE ---
Referring Provider Name of Referring Provider:: Peter Consult Date: 07/16/19 Chief Complaint - Chief Complaint Chief Complaint: with IUD in place History of Present Illness - History Obtained From Records Reviewed: prior prenatals History obtained from: patient - History of Present Illness HPI Comment/Other: Patient is a 24 yo with positive test with IUD in place. IUD in place for a few months. Placed at [facility]; unremarkable placement experience per patient. No VB, abdominal pain, N/V. Menses 4-5 days late and positive UPT. unplanned but desired. PMH: gestational HTN PSH: tonsillectomy OBHX: with x1 CT in prior . Abnormal glucola, nl 3H OGTT Uncomplicated delivery. IUD placed 4-5 months ago. 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 Exam - Physical Exam General Appearance: positive: No acute distress Respiratory: positive: No respiratory distress, Breath sounds nml Cardiovascular: positive: Regular rate & rhythm Peripheral Pulses: positive: 1+ Abdomen: positive: Non-tender, No distention Skin: positive: Color nml Extremities: positive: Non-tender Neurologic/Psychiatric: positive: Oriented x3 Comments/Other: PELVIC: NEFG, NL BSUMA, Speculum inserted; vaginal mucosa pink and moist, rugated. Parous cervix with IUD strings visible. IUD removed as per procedure note. Shaft of IUD at external os. No VB or discharge. Conclusion/Plan - Lab Results Fish Bones: 02/28/20 09:47 - Other Other Results/Comments: OF UNKNOWN LOCATION WITH IUD IN PLACE. Patient voiced desire for despite failure of IUD. Reviewed high risk of ectopic given retained IUD. Desires removal of IUD. PROCEDURE: Risks/benefits/alternatives to procedure were reviewed. Emphasized that risk to intrauterine include induced SAB. However, continuing a viable IUP with Paraguard in place would continue to threaten . Informed consent was obtained. Patient was placed in dorsal lithotomy position and speculum was placed. Cervix was visualized. Strings were seen. Strings were grasped with a ring forceps and IUD was removed without resistance. It was examined and found to be intact. No bleeding was noted. All instruments were removed from the vagina. Procedure was well tolerated and without complications. FOLLOW-UP: Reviewed that with IUD in place is a significant risk factor for ectopic . is too early to be seen on pelvic us. Recommend trending HCG levels every 3 days until threshold for us visualization is reached. Reviewed expectation that HCG should [nearly] double every 3 days in a normal intrauterine . With a decline in levels, SAB is suspected. With inappropriate rise, ectopic is expected. Reviewed warning signs for ectopic . Reviewed that ectopic can be a life threatening event and consistent follow-up is imperative. HCG levels were ordered for patient through [facility]. She and balance bridge inspector voiced clear understanding. Will FU HCG in 3 days More than 30 minutes was spent with patient, in addition to procedure, in face to face career guidance counselor.
== END 2019-07-16 12:32 | disposition home or self-care (01) ==
LOC: ED 08:00
DX: Z32.01 Encounter for pregnancy test, result positive (principal); O26.31 Retained intrauterine contraceptive device in pregnancy, first trimester; O34.81 Maternal care for other abnormalities of pelvic organs, first trimester; N83.12 Corpus luteum cyst of left ovary
CPT/HCPCS: 36415; 58301; 76801; 76817; 81001; 81003; 81025; 84702; 85025; 86900; 86901; 87086; 99284

== ENCOUNTER 2019-07-22 09:46 | Outpatient (CLI) | payer OTHER | END 2019-07-22 09:47 | disposition home or self-care (01) | LOC: LAB 09:46 | PROVIDERS: ATTEND Obstetrics & Gynecology | DX: O26.31 Retained intrauterine contraceptive device in pregnancy, first trimester (principal); Z32.01 Encounter for pregnancy test, result positive; Z3A.00 Weeks of gestation of pregnancy not specified | CPT/HCPCS: 36415; 84702 ==

== ENCOUNTER 2019-07-26 09:29 | Outpatient (CLI) | payer OTHER | END 2019-07-26 09:30 | disposition home or self-care (01) | LOC: LAB 09:29 | PROVIDERS: ATTEND Obstetrics & Gynecology | DX: Z32.01 Encounter for pregnancy test, result positive (principal); O26.31 Retained intrauterine contraceptive device in pregnancy, first trimester; Z3A.00 Weeks of gestation of pregnancy not specified | CPT/HCPCS: 36415; 84702 ==

== ENCOUNTER 2019-07-29 18:54 | Outpatient (CLI) | payer OTHER ==
--- NOTE | 2019-07-30 05:34 | Ultrasound Report ---
Reason: POSITIVE TEST Procedure Date: 07/29/2019 Accession Number: [id number] / [id number] Procedure: US - OB First Trimester CPT Code: Final Report FULL RESULT: EXAM: FIRST TRIMESTER OBSTETRIC ULTRASOUND (Less than 11 weeks) EXAM DATE: 07/29/2019 07:51 PM. CLINICAL HISTORY: POSITIVE TEST. LMP: 06/13/2019. COMPARISONS: OB FIRST TRIMESTER 07/16/2019 9:59 AM. TECHNIQUE: Transabdominal and transvaginal ultrasound examination with static image documentation. CLINICAL DATES: EGA 6 weeks 4 days with MEL 03/19/2020 based on LMP. ASSESSMENT: Gestational Sac: Single intrauterine. Mean gestational sac diameter: 12 mm = 6 weeks 0 days. Embryo: Not seen at this early gestational age Cardiac activity: Not seen at this early gestational age Yolk sac: 3 mm. Amniotic fluid: Not accurately assessed at this gestational age. Early placenta: Not visible at this gestational age. Other: No perigestational fluid collection demonstrated. MATERNAL STRUCTURES: Uterus: Anteverted. Unremarkable. Cervix: Closed. Right Ovary/Adnexa: The ovary measures 2.8 x 1.9 x 2.0 cm, volume 5.6 cc. Unremarkable. Left Ovary/Adnexa: The ovary measures 3.8 x 2.8 x 2.2 cm, volume 11.9 cc. Corpus luteum measuring 1.8 x 2.5 x 2.0 cm Free Fluid: None. Other: None. IMPRESSION: Intrauterine with gestational sac and yolk sac, without pole seen at this early gestational age with an ultrasound age of 5 weeks 5 days and ultrasound estimated date of delivery of 03/25/2020. Short follow-up can be obtained to assess for pole and viability RADIA
== END 2019-07-29 18:55 | disposition home or self-care (01) ==
LOC: DI 18:54
PROVIDERS: ATTEND Obstetrics & Gynecology
DX: Z32.01 Encounter for pregnancy test, result positive (principal)
CPT/HCPCS: 76801; 76817

== ENCOUNTER 2019-08-13 08:16 | Outpatient (CLI) | payer OTHER ==
--- NOTE | 2019-08-13 09:34 | Ultrasound Report ---
Reason: POSITIVE PREGANANCY TEST Procedure Date: 08/13/2019 Accession Number: [id number] / [id number] Procedure: US - OB First Trimester CPT Code: Final Report FULL RESULT: EXAM: FIRST TRIMESTER OBSTETRIC ULTRASOUND (Less than 11 weeks) EXAM DATE: 08/13/2019 09:20 AM. CLINICAL HISTORY: POSITIVE TEST. LMP: 06/13/2019. COMPARISONS: 07/29/2019. TECHNIQUE: Transabdominal and transvaginal ultrasound examination with static image documentation. CLINICAL DATES: EGA 8 weeks 5 days with MEL 03/19/2020 based on LMP. ASSESSMENT: Gestational Sac: Single intrauterine. Mean gestational sac diameter: 33 mm = 8 weeks 3 days. Embryo: CRL (crown-rump length) 15.1 mm = 7 weeks 6 days. Cardiac activity: 166 beats per minute. Yolk sac: 2.8 mm. Amniotic fluid: Not accurately assessed at this gestational age. Early placenta: Not visible at this gestational age. Other: There is a left inferior perigestational fluid collection measuring 15 x 21 x 9 mm. MATERNAL STRUCTURES: Uterus: Anteverted. Unremarkable. Cervix: Closed. Right Ovary/Adnexa: The ovary measures 3.2 x 1.8 x 1.7 cm, volume 4.9 cc. Unremarkable. Left Ovary/Adnexa: The ovary measures 3.6 x 2.2 x 2.1 cm, volume 8.7 cc. There is a left ovarian corpus luteum measuring 3.3 x 1.9 x 1.7 cm. Free Fluid: None. Other: None. IMPRESSION: 1. Single viable intrauterine at EGA 7 weeks 6 days with MEL 03/25/2020 based on crown-rump length. 2. Assigned dating is MEL 03/25/2020 based on the current ultrasound. 3. There is a perigestational fluid collection measuring 15 x 21 x 9 mm. RADIA
== END 2019-08-13 08:17 | disposition home or self-care (01) ==
LOC: DI 08:16
PROVIDERS: ATTEND Obstetrics & Gynecology
DX: Z32.01 Encounter for pregnancy test, result positive (principal)
CPT/HCPCS: 76801; 76817

== ENCOUNTER 2020-01-15 18:56 | Outpatient (CLI) | payer OTHER ==
--- NOTE | 2020-01-16 13:42 | Ultrasound Report ---
PROCEDURE: OB First Trimester INDICATIONS: POSITIVE TEST OUTSIDE/PRIOR DATING DATA: Last menstrual period (LMP): Unknown. LMP-based estimated date of delivery (MEL): Unknown. First dating scan (date and location): 01/15/2020. Estimated date of delivery (MEL) from first dating scan: 09/10/2020 TECHNIQUE: Real-time scanning was performed of the fetus and maternal pelvic organs, with image documentation. COMPARISON: None available from this FINDINGS: Embryo: There is an intrauterine gestational sac seen, with a pole present, which measures 0.2 8 cm, which corresponds to an estimated gestational age of 5 weeks 6 days. cardiac activity is seen, with a measured heart rate of 105 bpm. No significant perigestational/subchorionic hemorrhag e can be seen. Measurement variability in dating: +/- 4 weeks by LMP, +/- 7 days by mean sac diameter (use before 6 weeks gestation if crown-rump length not able to be measured), +/- 5 days by crown-rump length (6-12 weeks gestation). Maternal organs: Left ovarian cysts are noted, with the largest measuring up to 4 cm. A small amount of free fluid can be seen within the pelvis. Limited images through the kidneys demonstrate no hydro nephrosis. IMPRESSION: Single live intrauterine . This is a gestational age based upon these images is 5 weeks 6 days, with an ultrasound estimated lesly e of delivery of 09/10/2020. Left ovarian cysts can be seen, with the largest measuring up to 4 cm. A small amount of free pelvic fluid can be seen. Reviewed by: Tyrone Hill MD on 01/16/2020 12:41 PM GIANLUCA Approved by: Tyrone Hill MD on 01/16/2020 12:41 PM GIANLUCA Station ID: [id number]
== END 2020-01-15 18:57 | disposition home or self-care (01) ==
LOC: DI 18:56
PROVIDERS: ATTEND Advanced Practice Midwife
DX: Z32.01 Encounter for pregnancy test, result positive (principal); N83.202 Unspecified ovarian cyst, left side
CPT/HCPCS: 76801

== ENCOUNTER 2020-01-18 08:00 | Outpatient (CLI) | payer OTHER ==
[2020-01-18 09:58] LABS: MUDS CUTOFF CONCENTRATIONS CUTOFF CONC BELOW:
[2020-01-18 10:10] LABS: BILIRUBIN,URINE NEGATIVE (NEGATIVE); GLUCOSE, URINE (UA) NEGATIVE (NEGATIVE); KETONES,URINE (UA) NEGATIVE (NEGATIVE); LEUKOCYTE ESTERASE, URINE NEGATIVE (NEGATIVE); NITRITE,URINE NEGATIVE (NEGATIVE); OCCULT BLOOD,URINE NEGATIVE (NEGATIVE); PROTEIN,URINE NEGATIVE (NEGATIVE); UROBILINOGEN,URINE 0.2 (NORMAL) E.U./dL (NORMAL)
[2020-01-18 10:21] LABS: AMPHETAMINE SCREEN,URINE NEGATIVE (NEGATIVE); BENZODIAZEPINES SCREEN, URINE NEGATIVE (NEGATIVE); COCAINE SCREEN URINE NEGATIVE (NEGATIVE); METHADONE SCREEN, URINE NEGATIVE (NEGATIVE); METHAMPHETAMINES SCREEN, URINE NEGATIVE (NEGATIVE); OPIATE SCREEN, URINE NEGATIVE (NEGATIVE); OXYCODONE SCREEN, URINE NEGATIVE (NEGATIVE); PROPOXYPHENE SCREEN, URINE NEGATIVE (NEGATIVE); TRICYCLIC ANTIDEPRESSANT,URINE NEGATIVE (NEGATIVE)
[2020-01-18 10:25] LABS: CLARITY,URINE CLEAR (CLEAR)
[2020-01-18 10:26] LABS: BACTERIA,URINE None Seen /HPF (None Seen); RBC,URINE 0-5 /HPF (0-5); SQUAMOUS EPITHELIAL CELL,UR RARE Squamous (<= Few)
== END 2020-01-18 23:59 | disposition home or self-care (01) ==
LOC: LAB.R 08:00
PROVIDERS: ATTEND Obstetrics & Gynecology
DX: Z34.90 Encounter for supervision of normal pregnancy, unspecified, unspecified trimester (principal)
CPT/HCPCS: 80306; 81001; 87086

== ENCOUNTER 2020-02-11 16:01 | Outpatient (CLI) | payer OTHER ==
[2020-02-11 16:17] LABS: BASOPHILS % (AUTO) 0.3 %; EOSINOPHILS % (AUTO) 0.4 %; HGB - HEMOGLOBIN 11.4 g/dL (12.0-16.0); LYMPHOCYTES # (AUTO) 2.4 10^3/uL (1.5-3.5); LYMPHOCYTES % (AUTO) 34.9 %; MEAN CORPUSCULAR HEMOGLOBIN 26.5 pg (27.0-31.0); MEAN CORPUSCULAR HGB CONC 32.2 g/dL (32.0-36.0); MEAN CORPUSCULAR VOLUME 82.3 fL (81.0-99.0); MEAN PLATELET VOLUME 9.8 fL (7.9-10.8); MONOCYTES # (AUTO) 0.5 10^3/uL (0.0-1.0); MONOCYTES % (AUTO) 7.9 %; NEUTROPHILS # (AUTO) 3.9 10^3/uL (1.5-6.6); NEUTROPHILS % (AUTO) 56.2 %; PLT - PLATELET COUNT 241 10^3/uL (130-450); RED CELL DISTRIBUTION WIDTH 18.1 % (12.0-15.0); WHITE BLOOD COUNT 6.9 x10^3/uL (4.8-10.8)
[2020-02-12 09:31] LABS: HIV AG/AB 4TH GEN NON-REACTIVE (NON-REACTIVE)
[2020-02-12 12:30] LABS: HEPATITIS B SURFACE ANTIGEN NON-REACTIVE (NON-REACTIVE); HEPATITIS C ANTIBODY NON-REACTIVE (NON-REACTIVE)
== END 2020-02-11 16:02 | disposition home or self-care (01) ==
LOC: LAB 16:01
PROVIDERS: ATTEND Obstetrics & Gynecology
DX: Z34.90 Encounter for supervision of normal pregnancy, unspecified, unspecified trimester (principal)
CPT/HCPCS: 36415; 81599; 85025; 86592; 86762; 86803; 86850; 86900; 86901; 87340; 87389

== ENCOUNTER 2020-04-19 09:59 | Outpatient (CLI) | payer OTHER | END 2020-04-19 10:00 | disposition home or self-care (01) | LOC: LAB 09:59 | PROVIDERS: ATTEND Nurse Practitioner Obstetrics & Gynecology | DX: Z53.9 Procedure and treatment not carried out, unspecified reason (principal) ==

== ENCOUNTER 2020-04-21 14:30 | Outpatient (CLI) | payer OTHER ==
--- NOTE | 2020-04-21 22:12 | Ultrasound Report ---
PROCEDURE: OB Detailed Eval INDICATIONS: SCREENING, NORMAL OUTSIDE/PRIOR DATING DATA: Last menstrual period (LMP): Not available. LMP-based estimated date of delivery (MEL): Not available. First dating scan (date and location): 01/15/2020. Estimated date of delivery (MEL) from first dating scan: 09/10/2020. TECHNIQUE: Real-time scanning was performed of the fetus, with image documentation and biometric measurements. Endovaginal scanning: Not performed COMPARISON: OB ultrasound, 01/15/2020. FINDINGS: General: A single living intrauterine gestation is present. Presentation: Cephalic Placenta: Placental position is fundal, without previa. Amniotic fluid index: 14.3 cm, 52.9% for gestational age. Largest pocket 5.69 cm. heart rate: 147 beats per minute. Maternal cervical canal: 3.85 cm long; normal length is 2.5 cm or more. biometrics: Biparietal diameter: 19 weeks 6 days Head circumference: 19 weeks 6 days Abdominal circumference: 20 weeks 5 days Femur length: 19 weeks 6 days Estimated gestational age from initial scan: 19 weeks 5 days. Composite gestational age from present scan: 20 weeks 0 day Estimated weight and percentile: 341 gm; 75.8% for gestational age Measurement variability in biometric dating: +/- 10 days from 12-20 weeks gestation, +/- 2 weeks from 20-30 weeks gestation, +/- 3 weeks at 30 weeks gestation or later. Anatomic survey: Neuro: Ventricles are normal at less than 10 mm. Cisterna magna is normal at 3-11 mm. Cerebellum i s normal in size and morphology. Nuchal skin fold: Normal at less than 6 mm between 14 and 20 weeks gestational age. Face: Nose and lips, facial profile are normal. Spine: No evidence for spina bifida. Heart: 4-chambered heart is present, with normal ventricular outflow tracts. Diaphragm: Diaphragm is intact. Stomach: Left-sided stomach is present. Kidneys: No hydronephrosis. Normal is less than 5 mm in 2nd trimester, less than 7 mm in 3rd trimester. Cord: 3 vessel cord has orthotopic insertion. Bladder: Normal in size. Extremities: All 4 extremities are visualized. There is a 1.8 x 1.7 cm left ovarian cyst in maternal ovary. IMPRESSION: 1. A single living intrauterine gestation with appropriate interval growth. 2. Normal anatomic survey. 3. Incidentally noted is a 1.8 x 1.7 cmleft ovarian cyst. Reviewed by: Josefina Fisher MD on 04/21/2020 10:10 PM PST Approved by: Josefina Fisher MD on 04/21/2020 10:10 PM PST Station ID: [id number]
== END 2020-04-21 14:31 | disposition home or self-care (01) ==
LOC: DI 14:30
PROVIDERS: ATTEND Advanced Practice Midwife
DX: Z36.8A Encounter for antenatal screening for other genetic defects (principal); O34.82 Maternal care for other abnormalities of pelvic organs, second trimester; N83.202 Unspecified ovarian cyst, left side; Z3A.19 19 weeks gestation of pregnancy

== ENCOUNTER 2020-06-13 08:00 | Outpatient (CLI) | payer OTHER ==
[2020-06-13 10:48] LABS: HGB - HEMOGLOBIN 11.5 g/dL (12.0-16.0); MEAN CORPUSCULAR HEMOGLOBIN 30.9 pg (27.0-31.0); MEAN CORPUSCULAR HGB CONC 32.8 g/dL (32.0-36.0); MEAN CORPUSCULAR VOLUME 94.4 fL (81.0-99.0); MEAN PLATELET VOLUME 9.4 fL (7.9-10.8); RED BLOOD COUNT 3.72 10^6/uL (4.20-5.40); RED CELL DISTRIBUTION WIDTH 13.6 % (12.0-15.0); WHITE BLOOD COUNT 9.8 x10^3/uL (4.8-10.8)
== END 2020-06-13 23:59 | disposition home or self-care (01) ==
LOC: LAB 08:00
PROVIDERS: ATTEND Advanced Practice Midwife
DX: Z36.8A Encounter for antenatal screening for other genetic defects (principal)
CPT/HCPCS: 36415; 82950; 85027

== ENCOUNTER 2020-08-01 12:58 | Outpatient (CLI) | payer OTHER ==
[2020-08-01 13:18] LABS: HCT - HEMATOCRIT 36.4 % (37.0-47.0); HGB - HEMOGLOBIN 12.1 g/dL (12.0-16.0); MEAN CORPUSCULAR HEMOGLOBIN 30.9 pg (27.0-31.0); MEAN CORPUSCULAR HGB CONC 33.2 g/dL (32.0-36.0); MEAN CORPUSCULAR VOLUME 93.1 fL (81.0-99.0); MEAN PLATELET VOLUME 9.8 fL (7.9-10.8); RED BLOOD COUNT 3.91 10^6/uL (4.20-5.40); RED CELL DISTRIBUTION WIDTH 13.8 % (12.0-15.0); WHITE BLOOD COUNT 10.8 x10^3/uL (4.8-10.8)
[2020-08-01 13:31] LABS: ALBUMIN 3.1 g/dL (3.2-5.5); ALKALINE PHOSPHATASE 119 IU/L (42-121); ALT ALANINE AMINOTRANSFERASE 13 IU/L (10-60); AST ASPARTATE AMINOTRANSFERASE 16 IU/L (10-42); BILIRUBIN,TOTAL < 0.2 mg/dL (0.2-1.0); BUN - BLOOD UREA NITROGEN 7 mg/dL (6-20); CALCIUM 9.1 mg/dL (8.5-10.3); CARBON DIOXIDE - CO2 19 mmol/L (21-32); CHLORIDE 99 mmol/L (101-111); CREATININE 0.5 mg/dL (0.4-1.0); GFR - MDRD 153 (>89); GLUCOSE 111 mg/dL (70-100); POTASSIUM 3.9 mmol/L (3.5-5.0); SODIUM 132 mmol/L (135-145); TOTAL PROTEIN 6.8 g/dL (6.7-8.2)
[2020-08-01 13:32] LABS: ALBUMIN/GLOBULIN RATIO 0.8 (1.0-2.2)
[2020-08-01 13:50] LABS: CREATININE,URINE 17.8 mg/dL; TOTAL PROTEIN,URINE TIMED < 6 mg/dL
== END 2020-08-01 12:59 | disposition home or self-care (01) ==
LOC: LAB 12:58
PROVIDERS: ATTEND Nurse Practitioner Obstetrics & Gynecology
DX: O12.00 Gestational edema, unspecified trimester (principal); Z36.8A Encounter for antenatal screening for other genetic defects
CPT/HCPCS: 36415; 80053; 81511; 82570; 84156; 85027

== ENCOUNTER 2020-08-16 08:00 | Outpatient (CLI) | payer OTHER | END 2020-08-16 23:59 | disposition home or self-care (01) | LOC: LAB.R 08:00 | PROVIDERS: ATTEND Nurse Practitioner Obstetrics & Gynecology | DX: Z36.85 Encounter for antenatal screening for Streptococcus B (principal) | CPT/HCPCS: 87797 ==

== ENCOUNTER 2020-08-16 09:12 | Outpatient (CLI) | payer OTHER ==
[2020-08-16 09:36] LABS: HCT - HEMATOCRIT 35.6 % (37.0-47.0); MEAN CORPUSCULAR HEMOGLOBIN 31.3 pg (27.0-31.0); MEAN CORPUSCULAR HGB CONC 33.7 g/dL (32.0-36.0); MEAN PLATELET VOLUME 9.7 fL (7.9-10.8); RED BLOOD COUNT 3.83 10^6/uL (4.20-5.40); RED CELL DISTRIBUTION WIDTH 13.6 % (12.0-15.0); WHITE BLOOD COUNT 10.1 x10^3/uL (4.8-10.8)
[2020-08-16 09:50] LABS: ALBUMIN/GLOBULIN RATIO 0.8 (1.0-2.2); BILIRUBIN,TOTAL 0.2 mg/dL (0.2-1.0); CREATININE 0.4 mg/dL (0.4-1.0); POTASSIUM 3.8 mmol/L (3.5-5.0); TOTAL PROTEIN 6.7 g/dL (6.7-8.2)
[2020-08-16 09:53] LABS: CREATININE,URINE 49.1 mg/dL; PROTEIN/CREATININE RATIO,URINE 0.1 (<=0.2)
== END 2020-08-16 09:13 | disposition home or self-care (01) ==
LOC: LAB 09:12
PROVIDERS: ATTEND Nurse Practitioner Obstetrics & Gynecology
DX: R03.0 Elevated blood-pressure reading, without diagnosis of hypertension (principal)
CPT/HCPCS: 36415; 80053; 82570; 84156; 85027

== ENCOUNTER 2020-08-22 12:04 | Inpatient (IN) | payer OTHER ==
[~2020-08-22 12:04] MED LIST: ACETAMINOPHEN 325 MG TABLET PO PRN; CARBOPROST TROMETHAMINE 250 MCG/ML AMP IM PRN; LACTATED RINGERS 1,000 ML IV SCH; LIDOCAINE-MPF 1% 30 ML VIAL ID PRN; METHYLERGONOVINE 0.2 MG/ML VIAL IM PRN; METOCLOPRAMIDE 10 MG TABLET PO PRN; METOCLOPRAMIDE 10 MG/2 ML VIAL IVP PRN; ONDANSETRON 4 MG/2 ML VIAL IVP PRN; ONDANSETRON ODT 4 MG TABLET TL PRN; OXYTOCIN 10 UNIT/ML VIAL IM PRN; OXYTOCIN/SODIUM CHLORIDE 500 ML IV PRN; PROMETHAZINE 25 MG TABLET PO PRN; SODIUM CHLORIDE FLUSH 0.9% 10 ML SYRINGE IVP PRN; TERBUTALINE 1 MG/ML VIAL SUBQ SCH; TRANEXAMIC ACID IN NACL 1,000 MG/100 ML BAG IV PRN; fentaNYL 100 MCG/2 ML VIAL IVP PRN; miSOPROStoL 200 MCG TABLET BC PRN
[2020-08-22] MEDS ORDERED: AMPICILLIN 2 GM in SODIUM CHLORIDE 0.9% MINIBAG 100 ML IV ONE (13:00)
--- NOTE | 2020-08-22 13:30 | HISTORY & PHYSICAL EXAMINATION ---
Admit History - Visit Reason Visit Reason: Other - : 3 Parity: 1 Premature: 0 Ectopic: 0 : 1 Care: positive: [facility] Risk/History: positive: induced HTN Complications This : positive: induced HTN Smoking Status: Never smoker - Mother's Labs Mother's Blood Type: positive: O Mother's RH: positive: Negative GBS: positive: Group B Strep Positive Rubella Status: positive: Immune Meds/Allgy - Home Medications Home Medications: Ambulatory Orders Medication Instructions Recorded Confirmed Ibuprofen [Motrin] 800 mg PO Q6H tablet 10/22/17 06/15/18 - Allergies Allergies/Adverse Reactions: Allergies Allergy/AdvReac Type Severity Reaction Status Date / Time No Known Drug Allergies Allergy Verified 06/15/18 15:04 Review of Systems - Constitutional Constitutional: denies: Fatigue, Fever, Chills - Eyes Eyes: denies: Blurred vision, Spots in vision, Dipolpia - Cardiovascular Cariovascular: reports: Edema. denies: Irregular heart rate, Palpitations, Chest pain - Respiratory Respiratory: denies: Cough, Wheezing, SOB at rest - Gastrointestinal Gastrointestinal: denies: Change in bowel habits, Nausea, Vomiting - Integumentary Integumentary: denies: Rash, Pruritis - Neurological Neurological: denies: Headache Physical - Abdominal Exam Vital Signs: Temp Pulse Resp BP Pulse Ox 36.6 C 87 20 125/84 H 08/22/20 12:37 08/22/20 12:37 08/22/20 12:37 08/22/20 12:37 Contraction Frequency (min/apart): irregular Contraction Intensity: positive: Mild Uterine Resting Tone: positive: Soft - Monitoring Heart Rate Baseline: 145 Strip Review: positive: Category I - Presentation Presentation: positive: Vertex - Vaginal Exam Membranes: positive: Membranes intact Dilation (in cm): 1 Effacement (%): 50 Station: positive: -3 Cervical Position: positive: Posterior - Speculum Exam Speculum Exam Performed: positive: No Plan for Labor - Plan For Labor I expect patient to be DC'd or transferred within 96 hours.: Yes Plan for Labor: Nica is a 25yo @ 37.2wks gestation by 5.6wk U/S. She presents to [facility] for medical induction of labor secondary to gestational hypertension. She has had slightly elevated BPs in the office the last 2 visits and she has a past history significant for gestational hypertension which required IOL at 37.3wks gestation. She is currently taking 81mg baby aspirin daily. She denies FREDERICK at present time but states she did experience a headache yesterday and went to a pharmacy to have her BP taken at it was 140/88. She denies visual disturbances, RUQ or epigastric pain. She has had weekly PIH labs which have been WNL. Her is also significant for testing positive for GBS which was collected at 36.3wks gestation and she will receive antibiotics per protocol for prophylaxis. She has been a patient of [facility] through the duration of her . She will be admitted to [facility] for management. Dating criteria: LMP unknown Initial U/S @ 5.6wks dates giving MEL 09/10/2020 Serial exams -agree Medications: PNV, 81mg ASA daily Allergies: OBHx: G1: 10/21/2017, @ 38wks, female, epidural, 5hr labor, IOL secondary to GHTN G2: 07/2019 SAB G3: current PMHx: no significant Surgical Hx: Tonsillectomy Social Hx: Never smoker. No ETOH or IVDA. Partner Geremias is active duty. Family Hx: no significant course: Initial U/S: at 5.6wks with no known LMP for MEL of 09/10/2020. Left ovarian cysts seen, with the largest measuring up to 4cm. O NEG/Rubella immune Rhogam 06/15/2020 ASA- 81mg daily- hx of GHTN @ 38wks Genetic testing: Quad screen negative FAS WNL. Fundal placenta without previa. 3VC. Size c/w dating. LYNN WNL. Glucola 116 Influenza: recieved at [facility] TDAP: 06/15/2020 GBS @ 36.3 - Positive HSV: denies in self and partner Breast pump Rx provided MOD: Anticipate . Daughter Brett. Girl- Gabi; desires epidural pp contraception: Mirena IUD vs tubal ligation ( with Paragard in place) pap: 11/2017 WNL. Desires . Physical Exam: Normocephalic, atraumatic Heart RRR w/o M/G/R Lungs CTAB Abdomen gravid, soft, nontender EFW 3400g SVE 1/50/-3, posterior, vertex. FHR baseline 140s, moderate variability, + accels, no decels Contractions palpate mild, irregularly. Pt does not appreciate contractions. Bilateral LE's 1+ edema Mood is good. Assessment: 25yo @ 37.2wks gestation by 5.6wk U/S Gestational hypertension GBS positive FHR Category I Plan: Place in observation status for pre-induction cervical ripening with 50mcg BC misoprostol q 4 hrs Continuous monitoring Initiate GBS prophylaxis per protocol Serial BP measurements with parameters for when to notify provider given Nitrous oxide PRN. Jacuzzi PRN. Epidural per maternal request. Anticipate . Pt and partner verbalized understanding and agree to above plan. They deny further questions or concerns at this time.
[2020-08-22 13:44] LABS: BASOPHILS % (AUTO) 0.2 %; EOSINOPHILS % (AUTO) 0.2 %; HCT - HEMATOCRIT 36.2 % (37.0-47.0); HGB - HEMOGLOBIN 12.3 g/dL (12.0-16.0); LYMPHOCYTES # (AUTO) 2.1 10^3/uL (1.5-3.5); LYMPHOCYTES % (AUTO) 21.9 %; MEAN CORPUSCULAR HEMOGLOBIN 31.6 pg (27.0-31.0); MEAN CORPUSCULAR VOLUME 93.1 fL (81.0-99.0); MEAN PLATELET VOLUME 10.7 fL (7.9-10.8); MONOCYTES # (AUTO) 0.7 10^3/uL (0.0-1.0); MONOCYTES % (AUTO) 7.4 %; NEUTROPHILS # (AUTO) 6.7 10^3/uL (1.5-6.6); NEUTROPHILS % (AUTO) 68.4 %; PLT - PLATELET COUNT 196 10^3/uL (130-450); RED BLOOD COUNT 3.89 10^6/uL (4.20-5.40); RED CELL DISTRIBUTION WIDTH 13.5 % (12.0-15.0); WHITE BLOOD COUNT 9.8 x10^3/uL (4.8-10.8)
[2020-08-22 13:59] LABS: ALBUMIN 3.2 g/dL (3.2-5.5); ALBUMIN/GLOBULIN RATIO 0.9 (1.0-2.2); BILIRUBIN,TOTAL 0.3 mg/dL (0.2-1.0); CALCIUM 9.3 mg/dL (8.5-10.3); CREATININE 0.4 mg/dL (0.4-1.0); POTASSIUM 3.9 mmol/L (3.5-5.0); TOTAL PROTEIN 6.9 g/dL (6.7-8.2)
[2020-08-22] MEDS: miSOPROStoL 100 MCG TABLET BC SCH ×3 (14:00→22:11)
[2020-08-22 14:42] LABS: CREATININE,URINE 21.7 mg/dL; TOTAL PROTEIN,URINE TIMED < 6 mg/dL
[2020-08-22] MEDS ORDERED: SODIUM CHLORIDE FLUSH 0.9% 10 ML SYRINGE IVP SCH (17:00)
[2020-08-22] MEDS: AMPICILLIN 1 GM in SODIUM CHLORIDE 0.9% MINIBAG 100 ML IV SCH ×2 (17:59→22:16)
[2020-08-22] MEDS ORDERED: ZOLPIDEM 5 MG TABLET PO PRN (21:18)
[2020-08-23] MEDS: miSOPROStoL 100 MCG TABLET BC SCH (02:02)
[2020-08-23] MEDS: AMPICILLIN 1 GM in SODIUM CHLORIDE 0.9% MINIBAG 100 ML IV SCH ×3 (02:04→10:00)
[2020-08-23] MEDS ORDERED: ROPIVACAINE 0.2% 200 MG/100 ML BAG EP ONE (08:13)
--- NOTE | 2020-08-23 08:15 | PROVIDER PROGRESS NOTE ---
Labor Progress Note - Uterine Monitoring Contraction Intensity: positive: Moderate to strong Uterine Resting Tone: positive: Soft - Monitoring Monitor Mode: positive: External ultrasound Heart Rate Variability: positive: Moderate (6-25 bmp) Accelerations: positive: Present, 15x15 Decelerations: positive: None Strip Review: positive: Category I - Vaginal Exam Dilation (in cm): 6-7 Effacement (%): 90 Station: -1 Cervical Position: Anterior - Labor Progress Note Labor Progress Note/Additional Text: S: Breathing through contractions. Got in the jacuzzi for a bit which helped slightly but then she states she got hot. She is rating her pain 5/10 on a pain scale and is feeling like she needs something else to help manage her pain at this time. States she was able to get about 3 hours of interrupted sleep last night and is feeling tired. Following SVE she requests epidural. Denies FREDERICK, visual disturbances RUQ or epigastric pain.Her Geremias is supportive at the bedside. O: SVE 6-7/90/-1. Soft. Anterior. Vertex Membranes intact BPs 140s/90s - asymptomatic S/p 4 total doses of ampicillin for GBS prophylaxis A: 25yo @ 37.3wks gestation by 5.6wk U/S Gestational HTN GBS positive Active labor FHR Category I P: Anesthesia notified for placement of epidural. Continuous monitoring Continue GBS prophylaxis per protocol Repeat SVE in 4 hours or sooner PRN. Anticipate . Pt verbalized understanding and agrees to above plan. She denies further questions or concerns at this time.
[2020-08-23] MEDS ORDERED: LIDOCAINE-MPF 1% 30 ML VIAL ONE (08:28)
[2020-08-23] MEDS ORDERED: HYDROCORTISONE 1% CREAM 28 GM TUBE PR PRN (09:25)
[2020-08-23] MEDS ORDERED: WITCH HAZEL/GLYCERIN 1 PAD TOP PRN (09:25)
--- NOTE | 2020-08-23 09:27 | DELIVERY NOTE ---
Delivery Note - Labor Labor: positive: Other - Infant Delivery Method Delivery Method: positive: Spontaneous vaginal delivery - Cervical Ripening Method Cervical Ripening Method: positive: Misoprostil - Presentation Presentation: positive: Vertex, [place] - left occiput anterior - Nuchal Cord Nuchal Cord: positive: None - Amniotic Fluid Description Amniotic Fluid Description: positive: Light meconium - Episiotomy Type Episiotomy Type: positive: None - Laceration Laceration: positive: None - Delivery Outcome Delivery Outcome: positive: Livebirth - : positive: Placed in direct skin contact with mother, Stimulated, Warmed, [place] used [place] sex: positive: Female - Cord Cord: positive: 3 vessels - Placenta Placenta: positive: Intact, Manual removal - Estimated Blood Loss Estimated Blood Loss (in cc): 250 - Post Delivery Events Post Delivery Events: positive: No post delivery events - Delivery Comments (Free Text/Narrative) Delivery Comments (Free Text/Narrative): Labor: This 25yo @ 37.3wks gestation by 5.6wk U/S who presented on 08/22/2020 for medical induction of labor secondary to gestational hypertension. Cervix was 1/50/-3 and vertex. FHR pattern demonstrated Category I pattern throughout labor. Normal labor course. Pt received 4 doses of 50mcg BC misoprostol for effective pre-induction cervical ripening and then entered active labor spontaneously. Epidural placed per maternal request. SROM occurred at 0836 and was noted to be a moderate amount of clear fluid. Patient received 4 doses of ampicillin for adequate GBS prophylaxis per protocol. Patient progressed to c/c/+2 at 0845. Onset of pushing at 0852. : Normal of viable female infant on 08/23/2020 @ 0858. No nuchal cord. The was placed on maternal abdomen, stimulated, dried, and placed skin to skin. 's were 9/9 at 1 and 5 min respectively. Pitocin administered via IV for hemostasis. The umbilical cord was allowed to stop pulsating at which time it was doubly clamped by CNM and cut by FOB. 3VC. Cord blood was obtained. Fundal massage and gentle cord traction applied followed by evulsion of the cord at placental insertion site. Pitocin was discontinued as cervix was noted to be contracted around placental edge. Placental edge was easily grasped and fundal massage performed to expel placenta which was noted to be in 3 separate fragments. Pitocin initiated and bleeding throughout was minimal for total EBL 250mL. Fourth stage: Uterine fundus firm and there is no excessive bleeding. The perineum, vagina, and cervix were inspected and noted to be intact. Skin to skin contact initiated with mother and . Family bonding well. Both mother and baby were left in stable condition. Pt will receive 1 additional dose of 1g Ampicillin secondary to modified manual removal of the placenta.
[2020-08-23] MEDS ORDERED: ROPIVACAINE 0.2% 200 MG/100 ML BAG EP PRN (09:42)
[2020-08-23] MEDS ORDERED: NALBUPHINE 10 MG/ML AMP IVP PRN (09:42)
[2020-08-23] MEDS ORDERED: ONDANSETRON 4 MG/2 ML VIAL IVP PRN (09:42)
[2020-08-23] MEDS ORDERED: NALOXONE 0.4 MG/ML VIAL IVP PRN (09:42)
[2020-08-23] MEDS ORDERED: ePHEDrine 50 MG/ML VIAL IVP PRN (09:42)
[2020-08-23] MEDS ORDERED: METOCLOPRAMIDE 10 MG/2 ML VIAL IVP PRN (09:42)
[2020-08-23] MEDS ORDERED: diphenhydrAMINE INJ 50 MG/ML VIAL IVP PRN (09:42)
--- NOTE | 2020-08-23 09:48 | ANESTHESIA ---
Pre-Anesthesia VS, & Labs - Diagnosis labor - Procedure labor epidural Vital Signs: Temp Pulse Resp BP Pulse Ox 36.6 C 87 20 125/84 H 08/22/20 12:37 08/22/20 12:37 08/22/20 12:37 08/22/20 12:37 Height: 5 ft 7 in Weight (kg): 94.347 kg Body Mass Index: 32.5 BMI Classification: Obese - NPO >8 hours - Is Patient ?: Yes - Lab Results Current Lab Results: Laboratory Tests 08/22/20 13:00: Sodium 137, Potassium 3.9, Chloride 107, Carbon Dioxide 21, Anion Gap 9.0, BUN 8, Creatinine 0.4, Estimated GFR (MDRD) 198, Glucose 83, Calcium 9.3, Total Bilirubin 0.3, AST 17, ALT 12, Alkaline Phosphatase 149 H, Total Protein 6.9, Albumin 3.2, Globulin 3.7, Albumin/Globulin Ratio 0.9 L 08/22/20 13:00: WBC 9.8, RBC 3.89 L, Hgb 12.3, Hct 36.2 L, MCV 93.1, MCH 31.6 H, MCHC 34.0, RDW 13.5, Plt Count 196, MPV 10.7, Neut # (Auto) 6.7 H, Lymph # (Auto) 2.1, [place] # (Auto) 0.7, Eos # (Auto) 0.0, Baso # (Auto) 0.0, Absolute Nucleated RBC 0.00, Nucleated RBC % 0.0 08/22/20 13:00: Blood Type O NEGATIVE, Antibody Screen NEGATIVE Fish Bones: 08/22/20 13:00 08/22/20 13:00 Home Medications and Allergies Active Medications Acetaminophen (Acetaminophen 500 Mg Tablet) 1,000 mg PO Q8H PRN PRN Reason: Pain or Fever Carboprost Tromethamine (Carboprost Tromethamine 250 Mcg/Ml Amp) 250 mcg IM Q15M PRN PRN Reason: Step 4: Hemorrhage protocol Stop: 08/27/20 11:57 Diphenhydramine HCl (Diphenhydramine Inj 50 Mg/Ml Vial) 12.5 - 25 mg IVP Q6HR PRN PRN Reason: ITCHING Docusate Sodium (Docusate Sodium 100 Mg Capsule) 100 mg PO BID DAVE Ephedrine Sulfate (Ephedrine 50 Mg/Ml Vial) 5 mg IVP Q5M PRN PRN Reason: For SBP<100;give until SBP>100 Fentanyl (Fentanyl 100 Mcg/2 Ml Vial) 50 mcg IVP Q1H PRN PRN Reason: PAIN Hydrocortisone (Hydrocortisone 1% Cream 28 Gm Tube) 1 applic [place] QID PRN PRN Reason: Hemorrhoids Oxytocin/Sodium Chloride (Pitocin/Sodium Chloride) 500 mls @ 999 mls/hr IV PRN PRN; Protocol PRN Reason: POST- HEMORR PREVENTION Stop: 08/27/20 11:57 Tranexamic Acid (Tranexamic 1,000 Mg/100ml-Nacl) 1,000 mg in 100 mls @ 600 mls/hr IV .ONCE PRN PRN Reason: EBL >1200mL and within 3hr Stop: 08/27/20 11:57 Ampicillin Sodium 1 gm/ Sodium (Chloride) 100 mls @ 200 mls/hr IV Q4H [facility] Last Admin: 08/23/20 06:20 Dose: 200 mls/hr Documented by: Lactated Ringer's (Lr) 1,000 mls @ 100 mls/hr IV .Q10H [facility] Last Admin: 08/22/20 14:00 Dose: 100 mls/hr Documented by: Ibuprofen (Ibuprofen 800 Mg Tablet) 800 mg PO Q6H [facility] Lidocaine HCl (Lidocaine-Mpf 1% 30 Ml Vial) 30 ml ID .ONCE PRN PRN Reason: PERINEAL REPAIR Stop: 08/27/20 11:57 Methylergonovine Maleate (Methylergonovine 0.2 Mg/Ml Vial) 0.2 mg IM .ONCE PRN PRN Reason: Step 2: Hemorrhage protocol Stop: 08/27/20 11:57 Metoclopramide HCl (Metoclopramide 10 Mg Tablet) 10 mg PO Q6H PRN PRN Reason: Nausea / Vomiting Metoclopramide HCl (Metoclopramide 10 Mg/2 Ml Vial) 10 mg IVP Q6H PRN PRN Reason: Nausea / Vomiting Metoclopramide HCl (Metoclopramide 10 Mg/2 Ml Vial) 10 mg IVP Q6HR PRN PRN Reason: Nausea / Vomiting Misoprostol (Misoprostol 200 Mcg Tablet) 800 mcg BC .ONCE PRN PRN Reason: Step 3: Hemorrhage protocol Stop: 08/27/20 11:57 Misoprostol (Misoprostol 100 Mcg Tablet) 50 mcg BC Q4HR [facility] Last Admin: 08/23/20 02:02 Dose: 50 mcg Documented by: Nalbuphine HCl (Nalbuphine 10 Mg/Ml Amp) 2.5 - 5 mg IVP Q4H PRN PRN Reason: ITCHING Naloxone HCl (Naloxone 0.4 Mg/Ml Vial) 0.1 mg IVP Q2M PRN PRN Reason: RR<8 Ondansetron HCl (Ondansetron 4 Mg/2 Ml Vial) 4 mg IVP Q4HR PRN PRN Reason: Nausea / Vomiting Ondansetron HCl (Ondansetron Odt 4 Mg Tablet) 4 mg TL Q4HR PRN PRN Reason: Nausea / Vomiting Ondansetron HCl (Ondansetron 4 Mg/2 Ml Vial) 4 mg IVP Q6HR PRN PRN Reason: Nausea / Vomiting Oxytocin (Oxytocin 10 Unit/Ml Vial) 10 unit IM .ONCE PRN PRN Reason: Step one: If no IV access Stop: 08/27/20 11:57 Promethazine HCl (Promethazine 25 Mg Tablet) 25 mg PO Q6H PRN PRN Reason: Nausea / Vomiting Sodium Chloride (Sodium Chloride Flush 0.9% 10 Ml Syringe) 10 ml IVP 0100,0900,1700 [facility] Sodium Chloride (Sodium Chloride Flush 0.9% 10 Ml Syringe) 10 ml IVP PRN PRN PRN Reason: NEEDED PER PROVIDER ORDERS Terbutaline Sulfate (Terbutaline 1 Mg/Ml Vial) 0.25 mg SUBQ Q1H [facility] Witch Steph/Glycerin (Witch Steph/Glycerin 1 Pad) 1 pad TOP QID PRN PRN Reason: ITCHING Allergies/Adverse Reactions: Allergies Allergy/AdvReac Type Severity Reaction Status Date / Time No Known Drug Allergies Allergy Verified 06/15/18 15:04 Anes History & Medical History - Anesthetic History Anesthesia Complications: reports: No previous complications - Medical History Cardiovascular: reports: None Pulmonary: reports: None Gastrointestinal: reports: None Urinary: reports: None Neuro: reports: None Musculoskeletal: reports: None Endocrine/Autoimmune: reports: None Blood Disorders: reports: None Skin: reports: None Smoking Status: Never smoker - Obstetrical History : 3 Parity: 1 Events: reports: induced HTN Complications: reports: induced HTN Exam General: Alert Dental: WNL Plan Anesthesia Type: Epidural Consent for Procedure(s) Verified and Reviewed: Yes Code Status: Attempt Resuscitation ASA classification: 2-Mild systemic disease Is this case an emergency?: No
[2020-08-23] MEDS: IBUPROFEN 800 MG TABLET PO SCH ×3 (11:14→23:16)
[2020-08-23] MEDS: ACETAMINOPHEN 500 MG TABLET PO PRN ×2 (11:14→19:15)
[2020-08-23] MEDS: DOCUSATE SODIUM 100 MG CAPSULE PO SCH (17:07)
[2020-08-24] MEDS: ACETAMINOPHEN 500 MG TABLET PO PRN ×2 (03:47→11:38)
[2020-08-24] MEDS: IBUPROFEN 800 MG TABLET PO SCH ×2 (05:23→11:37)
[2020-08-24 08:01] VITALS: BP 127/79
[2020-08-24] MEDS: DOCUSATE SODIUM 100 MG CAPSULE PO SCH (08:42)
--- NOTE | 2020-08-24 09:43 | PROVIDER PROGRESS NOTE ---
Subjective - Subjective Subjective: FINAL PROGRESS NOTE: S: Bonding well with baby. without difficulty. Pain well controlled with oral medications. Bleeding decreased and is light. Feels a little sore but overall states she is feeling great and they strongly desire to be discharged home today. O: BP 127/79, HR 76, RR 18, T 36.8 Heart RRR w/o M/G/R, lungs CTAB, abdomen soft and nontender with fundus firm at U-1, perineum intact, light lochia rubra, bilateral LE's trace edema. A: 25yo -->P2 PPD#1 s/p TSVD viable female Baby Rh negative - no rhogam administered P: Reviewed pp self care and warning s/sx and when to present. Discharge home today. Encouraged continuation of PNV while . Encouraged continuation of ibuprofen and tylenol OTC as needed for pain ma nagement. F/u in 1 week for routine pp visit or sooner PRN. Pt verbalized understanding and agrees to above plan. She denies further questions or concerns at this time. Objective - Vital Signs/Intake & Output Vital Signs: Vital Signs x48h Temp Pulse Pulse Resp BP Pulse Ox 08/24/20 08:01 36.8 C 76 76 18 127/79 100 08/24/20 03:45 36.6 C 90 18 126/71 100 Intake & Output: Intake & Output 08/21/20 08/22/20 08/23/20 08/24/20 23:59 23:59 23:59 23:59 Intake Total 200 200 Output Total 750 Balance 200 -550 - Lab Results Fish Bones: 08/22/20 13:00 08/22/20 13:00
--- NOTE | 2020-08-24 09:44 | Discharge Plan ---
Discharge Plan Problem Reviewed?: Yes Disposition: Home, Self Care Condition: Good Diet: Cardiac Activity Restrictions: No Restrictions Shower Restrictions: No Weight Bearing: Full Weight No Smoking: If you smoke, Please STOP! Call for help. Follow-up with: Manasa Irby CNM, ARNP [Provider Admit Priv/Credential] -
--- NOTE | 2020-08-24 10:19 | DISCHARGE SUMMARY ---
Physician: PURA Hassan DATE OF ADMISSION: 08/23/2020 DATE OF DISCHARGE: 08/24/2020 DIAGNOSES ON ADMISSION 1. A 25-year-old G3, P1-0-1-1 at 37.2 weeks' gestation by 5.6 week ultrasound. 2. Gestational hypertension. 3. Group B Streptococcus positive. 4. heart rate category 1. DIAGNOSES ON DISCHARGE 1. A 25-year-old G2, P-2-0-1-2, status post spontaneous vaginal delivery on 08/23/2020. 2. Normal recovery. BRIEF HISTORY: She is a patient of [facility], who presented on 08/22/2020 for medical induction of labor secondary to gestational hypertension. The patient was given 4 doses of 50 mcg buccal misoprostol for effective cervical ripening. Spontaneous rupture of membranes occurred on 08/23/2020 at 0836. Epidural was placed per maternal request. She progressed to spontaneously deliver a viable female infant on 08/23/2020 at 0858. Apgars were 9 and 9 at one and five minutes respectively. The umbilical cord was noted to evulse from placental edge after it had been clamped and cut from the . The placental edge was grasped and fundal massage performed to expel placenta in 3 separate fragments. Pitocin was initiated, and bleeding throughout was minimal for a total EBL of 250 mL. The patient was given ampicillin for GBS prophylaxis per protocol and received adequate treatment during labor. She was given 1 additional dose of ampicillin secondary to modified manual removal of the placenta. She has been doing well in her course. She is ambulating and tolerating a regular diet. She is urinating without difficulty, and her lochia is normal. Her pain is well-controlled with oral medications. Her blood pressures after delivery have been within normal limits. She will be discharged home today on day #1 with instructions to continue taking her vitamin while and to continue taking ibuprofen and Tylenol [id number] as needed for pain management. She intends to follow up with myself at [facility] in 1 week for routine visit or sooner as needed. She has been given precautions to call if she has any worsening fevers, chills, abdominal pain, increased bleeding, or foul- smelling vaginal lochia. TD: 08/24/2020 10:18 COREEN
--- NOTE | 2020-08-24 13:53 | Labor Flowsheet ---
Labor Flowsheet Datetime Report Generated by CPN: 08/24/2020 13:53 Datetime: 08/24/2020 07:58 VITAL SIGNS NBP Sys/Callie/Mean (mmHg): 127 : 79 : 90 Pulse: 77 LaborFlag: Labor Datetime: 08/23/2020 11:00 PAIN Pain Scale: 0 Datetime: 08/23/2020 09:09 SpO2 (%): 99 Datetime: 08/23/2020 08:58 UTERINE ACTIVITY Monitor Mode: External Frequency (min): 2-3 Quality: Strong Duration (sec): 50-60 Pattern: Normal: <= 5 Contractions in 10 Minutes Resting Tone (Palpate): Relaxed FHR Baseline Changes: No Baseline Change Variability: Moderate 6-25 bpm Accelerations: 15X15 Decelerations: Variable Category: Category II Comments: variables with contractions Datetime: 08/23/2020 08:30 FHR Baseline Rate : 140 Datetime: 08/23/2020 08:14 ANESTHESIA Anesthesia Comments: anesthesia in room Datetime: 08/23/2020 08:02 VAGINAL EXAM Dilatation (cm): 6.0 Effacement (%): 90 Station: -1 Exam by: A Mahamed Cervix, Position: Anterior COMMUNICATION Communication: Provider at Bedside Datetime: 08/23/2020 07:56 Temperature (C): 36.6 Pain Goal: 5 Pain Assessment Comments: will let nurse know when she is ready for epidural Datetime: 08/23/2020 07:35 Patient Position/Activity: High Fowlers Patient Care Comments: back in bed Datetime: 08/23/2020 07:30 ASSESSMENT A Monitor Mode: Telemetry Datetime: 08/23/2020 07:16 Communication Comments: Manasa Irby called with status update. Pt currently rating pain 5/10 with c tx. In [facility] for pain relief. Doing well. Next dose of miso due at 0600 held. Will be in shortly to assess pt and plan of care. Datetime: 08/23/2020 06:30 Comfort Measures: Hot Shower/Tub/Spa Datetime: 08/23/2020 06:24 Pain Presence: Intermittent Pain Type: Contraction Vaginal Exam Comments: Pt does not wish to have SVE at this time. Antibiotics: Ampicillin IV 1 Gm Medication Comments: dose #5 Datetime: 08/23/2020 04:10 MATERNAL ASSESSMENT Level of Consciousness: Alert Headache: Denies Breath Sounds, Left: Clear and Equal Breath Sounds, Right: Clear and Equal Nausea/Vomiting: Denies RUQ Epigastric Pain: Denies I/O Interventions: Ice Chips Given; Clear Liquids Given Datetime: 08/23/2020 02:41 PATIENT CARE IV/Blood Work: New IV Bag Hung; IV Bag Number @ 2 Datetime: 08/23/2020 02:12 Cervical Ripening Agents: Cytotec @ Cervical Ripening Agents Other: 4th dose of Cytotec Datetime: 08/23/2020 02:00 Contraction Comments: Difficulty tracing ctx at times due to maternal positioning in bed while asle ep. Datetime: 08/22/2020 22:28 Pain Coping: Talking Through Contractions; Declines Medication or Epidural MEDICATIONS Analgesics/Sedatives: Ambien (mg) @ 5 Datetime: 08/22/2020 20:56 Monitor Interventions for FHR: Ultrasound Adjusted Datetime: 08/22/2020 19:20 TEACHING Instructional Method: Verbal Plan of Care: Plan of Care Discussed Datetime: 08/22/2020 15:59 Pain Location: Abdomen Pain Relief Measures: Comfort Measures Datetime: 08/22/2020 13:20 Vaginal Bleeding: None Cervix, Consistency: Moderate Datetime: 08/22/2020 12:43 Oxygen Method: Room Air
== END 2020-08-24 13:30 | disposition home or self-care (01) | DRG 807 ==
LOC: WFO 12:04 → FBP 12:08 → INTOOBSV 08-23 08:07 → OBSVTOIN 08-23 08:07
PROVIDERS: ADMIT Nurse Practitioner Obstetrics & Gynecology; ATTEND Nurse Practitioner Obstetrics & Gynecology
PROC: 3E0DXGC Introduction of Other Therapeutic Substance into Mouth and Pharynx, External Approach (ICD-10-PCS; principal; 2020-08-23)
PROC: 10E0XZZ Delivery of Products of Conception, External Approach (ICD-10-PCS; 2020-08-23)
DX: O13.4 Gestational [pregnancy-induced] hypertension without significant proteinuria, complicating childbirth (principal); Z37.0 Single live birth; O99.824 Streptococcus B carrier state complicating childbirth; Z3A.37 37 weeks gestation of pregnancy; Z20.822 Contact with and (suspected) exposure to COVID-19
CPT/HCPCS: 36415; 80053; 82570; 84156; 85025; 86850; 86900; 86901; 87635; 96374; A9270; J7120